=== PATIENT | female | born 1950 | race Caucasian/White ===

== ENCOUNTER → 2016-08-29 | Outpatient (CLI) | payer OTHER | LOC: FIMAGING 14:35 | PROVIDERS: ATTEND Family Medicine | DX: Z12.31 Encounter for screening mammogram for malignant neoplasm of breast (principal) | CPT/HCPCS: G0202 ==

== ENCOUNTER 2017-02-03 14:32 | Inpatient (IN) | payer OTHER ==
[2017-02-03] MEDS ORDERED: IPRATROPIUM/ALBUTEROL 3 ML DEYVIAL ONE (15:05)
[2017-02-03 15:15] LABS: % IMMATURE GRANULYOCYTES 0.5 % (0.0-1.1); ABSOLUTE IMMATURE GRANULOCYTES 0.06 10^3/uL (0.00-0.10); ADD DIFF? NO; ADD MORPH? NO; ADD SCAN? NO; ATYPICAL LYMPHOCYTE FLAG 0 (0-99); FRAGMENT RBC FLAG 0 (0-99); HEMATOCRIT 31.4 % (38.0-47.0); HEMOGLOBIN 10.1 g/dL (12.6-16.3); LEFT SHIFT FLG 90 (0-99); LIPEMIA HEMOLYSIS FLAG 80 (0-99); MEAN CELL HEMOGLOBIN 28.7 pg (27.9-34.1); MEAN CELL HEMOGLOBIN CONCENTR. 32.2 g/dL (32.4-36.7); MEAN CELL VOLUME 89.2 fL (81.5-99.8); MEAN PLATELET VOLUME 8.3 fL (8.7-11.7); PLATELET CLUMPS FLAG 30 (0-99); PLATELET COUNT 337 10^3/uL (150-400); RED BLOOD CELL COUNT 3.52 10^6/uL (4.18-5.33); RED CELL DISTRIBUTION WIDTH 15.1 % (11.5-15.2)
[2017-02-03] MEDS ORDERED: IPRATROPIUM/ALBUTEROL 3 ML DEYVIAL IH ONE (15:31)
[2017-02-03 15:33] LABS: ANION GAP 11 mEq/L (8-16); CALCIUM 8.8 mg/dL (8.5-10.4); CARBON DIOXIDE 20 mEq/l (22-31); CHLORIDE 100 mEq/L (97-110); CREATININE 0.8 mg/dL (0.6-1.0); GLOMERULAR FILTRATION RATE > 60; GLUCOSE 105 mg/dL (70-100); POTASSIUM 3.7 mEq/L (3.5-5.2); SODIUM 131 mEq/L (134-144)
--- NOTE | 2017-02-03 15:33 | EDPHY ---
H & P Stated Complaint: chills, sob since saturday, diarrhea, vomit Time Seen by Provider: 02/03/17 15:32 - Personal History Current Tetanus/Diphtheria Vaccine: Unsure Current Tetanus Diphtheria and Acellular Pertussis (TDAP): Unsure Tetanus Vaccine Date: 2010 - Medical/Surgical History Hx Asthma: No Hx Chronic Respiratory Disease: Yes Hx Diabetes: No Hx Cardiac Disease: Yes Hx Renal Disease: No Hx Cirrhosis: No Hx Alcoholism: Yes Hx HIV/AIDS: No Hx Splenectomy or Spleen Trauma: No Other PMH: HTN, COPD, blood clots, A Fib, Raynaud's - Social History Smoking Status: Never smoked Constitutional: Initial Vital Signs Temperature (C) 36.5 C 02/03/17 14:41 Heart Rate 91 02/03/17 14:41 Respiratory Rate 16 02/03/17 14:41 Blood Pressure 123/71 H 02/03/17 14:41 O2 Sat (%) 90 L 02/03/17 14:41 O2 Delivery Mode Room Air Allergies/Adverse Reactions: Penicillins Allergy (Severe, Verified 07/13/11 19:38) Anaphylaxis Sulfa (Sulfonamide Antibiotics) Allergy (Severe, Verified 07/13/11 19:38) Anaphylaxis codeine [Codeine] Allergy (Intermediate, Verified 07/13/11 19:38) Vomiting Shellfish *RETIRED-03/17/12 [Shellfish] Allergy (Intermediate, Verified 19:38) Hives DOG Allergy (Mild, Uncoded 07/13/11 19:38) Itching SEASONAL Allergy (Mild, Uncoded 07/13/11 19:38) Home Medications: Medication Instructions Recorded Albuterol [Proventil Inhaler HFA 1 - 2 puffs IH Q4 PRN 11/23/14 (*)] Alendronate Sodium [Fosamax 70 MG 70 mg PO TH@0700 11/23/14 (*)] Ascorbic Acid [Vitamin C 500 mg 1,000 mg PO DAILY 11/23/14 (*)] Calcium Carbonate [Oyster Shell 1,500 mg PO DAILY 11/23/14 Calcium 500 mg (*)] Cholecalciferol Vit D3 [Vitamin D3 1,000 units PO DAILY 11/23/14 (*)] Dabigatran Etexilate Mesyl 150 mg PO BID 05/19/15 [Pradaxa 150 MG (*)] Escitalopram Oxalate [Lexapro 10 10 mg PO DAILY@11 11/23/14 MG] Fluticasone/Salmeter 250/50Mcg 1 puffs IH DAILY 11/23/14 [Advair 250/50 (*)] Furosemide [Lasix 20 MG (*)] 20 mg PO DAILY 11/23/14 Oxybutynin Chloride 5 mg PO DAILY 11/23/14 Pantoprazole Sodium [Protonix 40mg 40 mg PO DAILY PRN 11/23/14 (*)] Potassium Cl [Klor-Con 10 meq (RX)] 10 meq PO DAILY 11/23/14 Tiotropium Inhaler [Spiriva 1 inh IH DAILY 11/23/14 Inhaler (RX)] Diltiazem HCl [Cardizem Cd] 240 mg PO DAILY #30 cap.er.24h 11/24/14 Lisinopril 10 mg PO DAILY #30 tablet 11/24/14 traMADol [Ultram 50 mg (*)] 50 mg PO Q4 PRN #60 tab 11/24/14 Medical Decision Making - Diagnostics Imaging Results: Imaging Impressions Chest X-Ray 02/03/17 15:08 Impression: Findings consistent with airways disease are noted. Increased lingular segment opacity could reflect superimposed pneumonia. ED Course/Re-evaluation: CHIEF COMPLAINT: Cough, fever, general malaise HISTORY OF PRESENT ILLNESS: The patient is an anticoagulated 67 y/o female arriving with her family complaining of general malaise, subjective fever, and coughing since Saturday, 5 days ago. She has a medical history that includes COPD, CAD, hyponatremia, GERD, and Raynaud's disease. She's had associated chills, rigors, vomiting, and diarrhea since onset. She does not use home O2. She denies recent ill contacts. No dysuria, chest pain, abdominal pain. REVIEW OF SYSTEMS: A 10 point review of systems was performed and is negative with the exception of the elements mentioned in the history of present illness. PHYSICAL EXAM: HR, BP, O2 Sat, RR. Temp noted General Appearance: Alert, well hydrated, appropriate, and non-toxic appearing. Head: Atraumatic without scalp tenderness or obvious injury Eyes: Pupils equal, round, reactive to light and accommodation, EOMI, no trauma , no injection. Ears: Clear bilaterally, no perforation, normal landmarks Nose: Atraumatic, no rhinorrhea, clear. Throat: There is no erythema or exudates, no lesions, normal tonsils, mucus membranes moist. Neck: Supple, nontender, no lymphadenopathy. Respiratory: No retractions, no distress, no wheezes, and no accessory muscle use. Decreased breath sounds at the bases with coarse rhonchi. Mildly dyspneic while speaking. Cardiovascular: Regular rate and rhythm, no murmurs, rubs, or gallops. Good capillary refill all extremities. Gastrointestinal: Abdomen is soft, nontender, non-distended, no masses, no rebound, no guarding, no peritoneal signs. Musculoskeletal: Normal active ROM of all extremities, atraumatic. Neurological: Alert, appropriate, and interactive. Nonfocal neuro exam. Skin: No rashes, good turgor, no nodules on palpation. Past medical history: COPD - Spiriva and Advair, Raynaud's disease, CAD, chronic hyponatremia, GERD, chronic extremity edema, blood clots - Pradaxa Past surgical history: finger amputation Family history: noncontributory Social history: Family at bedside. Former smoker. Lives alone in the area. Sees Dr. Tomás Carpenter at [facility] DIAGNOSTICS/PROCEDURES/CRITICAL CARE TIME: Chest x-ray: RLL infiltrate, chronic changes DIFFERENTIAL DIAGNOSIS: The differential diagnosis for the patient's shortness of breath and hypoxemia included but was not limited to pneumonia, myocardial infarction, acute mountain sickness, high altitude pulmonary edema, congestive heart failure, and pulmonary embolus. MEDICAL DECISION MAKING: This is a 67 y/o female with a history of COPD, PE, and CAD who presents with a 5-day history of cough, fever, and malaise. She's felt generally ill and now has associated vomiting and diarrhea. She is hypoxemic around 90% on room air upon arrival, but does not meet sepsis criteria at this time. Plan for IV, labs including cultures, chest x-ray. Chest x-ray show RLL infiltrate that is likely early pneumonia. 750mg IV Levaquin, 10mg IV Decadron, and 1L IV NS ordered. Given her hypoxemia, I have recommended admission, which patient agrees to. 1556: Spoke with hospitalist service. Dr. Pimentel accepts admission for pneumonia and requests Ceftriaxone and azithromycin instead of Levaquin. - Data Points Laboratory Results: Laboratory Results 02/03/17 15:00 02/03/17 15:00 02/03/17 02/03/17 02/03/17 15:41 15:41 15:00 WBC RBC Hgb Hct MCV MCH MCHC RDW Plt Count MPV Neut % (Auto) Lymph % (Auto) [place] % (Auto) Eos % (Auto) Baso % (Auto) Nucleat RBC Rel Count Absolute Neuts (auto) Absolute Lymphs (auto) Absolute Monos (auto) Absolute Eos (auto) Absolute Basos (auto) Absolute Nucleated RBC Immature Gran % Immature Gran # PT 16.4 SEC H SEC (12.0-15.0) INR 1.32 H (0.83-1.16) APTT 63.6 SEC H SEC (23.0-38.0) Sodium 131 mEq/L L mEq/L (134-144) Potassium 3.7 mEq/L mEq/L (3.5-5.2) Chloride 100 mEq/L mEq/L (97-110) Carbon Dioxide 20 mEq/l L mEq/l (22-31) Anion Gap 11 mEq/L mEq/L (8-16) BUN 8 mg/dL mg/dL (7-23) Creatinine 0.8 mg/dL mg/dL (0.6-1.0) Estimated GFR > 60 Glucose 105 mg/dL H mg/dL (70-100) Calcium 8.8 mg/dL mg/dL (8.5-10.4) Total Bilirubin 0.6 mg/dL mg/dL (0.1-1.4) 02/03/17 15:00 WBC 11.67 10^3/uL H 10^3/uL (3.80-9.50) RBC 3.52 10^6/uL L 10^6/uL (4.18-5.33) Hgb 10.1 g/dL L g/dL (12.6-16.3) Hct 31.4 % L % (38.0-47.0) MCV 89.2 fL fL (81.5-99.8) MCH 28.7 pg pg (27.9-34.1) MCHC 32.2 g/dL L g/dL (32.4-36.7) RDW 15.1 % % (11.5-15.2) Plt Count 337 10^3/uL 10^3/uL (150-400) MPV 8.3 fL L fL (8.7-11.7) Neut % (Auto) 86.3 % H % (39.3-74.2) Lymph % (Auto) 5.1 % L % (15.0-45.0) [place] % (Auto) 7.8 % % (4.5-13.0) Eos % (Auto) 0.0 % L % (0.6-7.6) Baso % (Auto) 0.3 % % (0.3-1.7) Nucleat RBC Rel Count 0.0 % % (0.0-0.2) Absolute Neuts (auto) 10.06 10^3/uL H 10^3/uL (1.70-6.50) Absolute Lymphs (auto) 0.60 10^3/uL L 10^3/uL (1.00-3.00) Absolute Monos (auto) 0.91 10^3/uL H 10^3/uL (0.30-0.80) Absolute Eos (auto) 0.00 10^3/uL L 10^3/uL (0.03-0.40) Absolute Basos (auto) 0.04 10^3/uL 10^3/uL (0.02-0.10) Absolute Nucleated RBC 0.00 10^3/uL 10^3/uL (0-0.01) Immature Gran % 0.5 % % (0.0-1.1) Immature Gran # 0.06 10^3/uL 10^3/uL (0.00-0.10) PT INR APTT Sodium Potassium Chloride Carbon Dioxide Anion Gap BUN Creatinine Estimated GFR Glucose Calcium Total Bilirubin Medications Given: Discontinued Medications Albuterol/Ipratropium (Duoneb) 3 ml IH EDNOW ONE Stop: 02/03/17 15:32 Last Admin: 02/03/17 15:46 Dose: 3 ml Departure - Departure Disposition: [facility] Inpatient Acute Clinical Impression: Chronic obstructive pulmonary disease with acute exacerbation, Hypoxemia Pneumonia Qualifiers: Pneumonia type: due to unspecified organism Laterality: right Lung location: lower lobe of lung Qualified Code(s): J18.1 - Lobar pneumonia, unspecified organism Condition: Fair Referrals: Ivelisse Izaguirre MD [Primary Care Provider] - As per Instructions Report Scribed for: Chris Bhat Report Scribed by: Ml Mejia Date of Report: 02/03/17 Time of Report: 15:43
[2017-02-03 15:54] LABS: INR 1.32 (0.83-1.16); PROTIME(PATIENT) 16.4 SEC (12.0-15.0)
[2017-02-03] MEDS ORDERED: DEXAMETHASONE 10 MG/ML VIAL IVP ONE (15:54)
[2017-02-03 15:56] LABS: APTT 63.6 SEC (23.0-38.0)
[2017-02-03] MEDS ORDERED: AZITHROMYCIN IV 500 MG in D5W 250 ML IV ONE (15:58)
[2017-02-03 15:59] LABS: BILIRUBIN,TOTAL 0.6 mg/dL (0.1-1.4)
[2017-02-03] MEDS ORDERED: ONDANSETRON 4 MG/2 ML VIAL IVP PRN (18:20)
[2017-02-03] MEDS ORDERED: ONDANSETRON DISINTEGRATING 4 MG TAB PO PRN (18:20)
[2017-02-03] MEDS ORDERED: ALBUTEROL 3 ML DEYVIAL IH PRN (18:21)
[2017-02-03] MEDS: ACETAMINOPHEN 325 MG TAB PO PRN ×2 (18:40→22:47)
--- NOTE | 2017-02-03 19:12 | GHP ---
[f rep st] HISTORY AND PHYSICAL DATE OF ADMISSION: 02/03/2017 CHIEF COMPLAINT: Shortness of breath, cough. HISTORY OF PRESENT ILLNESS: This is a 67-year-old female, with a history of COPD and Raynaud's, as well as atrial fibrillation, on anticoagulation. She presents with several days of cough, shortness of breath. She also has had some chills and rigors. She admitted to diarrhea and some nausea with a little bit of vomiting this morning. She denied any chest pain. Her cough is not very productiv e. REVIEW OF SYSTEMS: A 10-point review of systems was obtained and other than stated above was negati ve. PAST MEDICAL HISTORY: 1. COPD. 2. History of Raynaud's with partial finger amputations. 3. Atrial fibrillation, on chronic anticoagulation. 4. Chronic hyponatremia. MEDICATIONS: Reviewed. SOCIAL HISTORY: Quit smoking. Has family in the area. FAMILY HISTORY: Cancer in the family, but no Raynaud's or autoimmune diseases. PHYSICAL EXAMINATION: VITAL SIGNS: Afebrile, blood pressure is 111/61, heart rate 87, oxygen satur ation 92% on 2 L. GENERAL: Patient is well developed, in no apparent distress. HEENT: Nonicteric sclerae. Extraocular movements intact. Moist mucous membranes. NECK: Supple. No thyromegaly. L UNGS: Good effort. Some rhonchi in the right base. Decreased breath sounds, but no wheezing. CAR DIOVASCULAR: Regular rate and rhythm. No murmurs, gallops. ABDOMEN: Positive bowel sounds. Soft , nontender, nondistended. No rebound or guarding. EXTREMITIES: No clubbing, cyanosis, or edema. SKIN: Without rash. Warm, dry, intact. NEUROLOGIC: Moving all 4 extremities equally. PSYCH: No rmal mood and affect. LABORATORY DATA: White blood cell count is 11, hemoglobin 10. Sodium 131, potassium 3.7. Chest x- ray, personally reviewed and interpreted, shows perihilar opacities in the left upper lobe. ASSESSMENT: A 67-year-old female, presenting with probable community-acquired pneumonia, and chroni c obstructive pulmonary disease exacerbation. 1. Community-acquired pneumonia. We will continue ceftriaxone and azithromycin. She is allergic t o penicillin, but tolerated ceftriaxone given in the emergency department so far. 2. Chronic obstructive pulmonary disease. We will start her on steroids. She is having pre-tight lungs. We will give nebulizer treatments as well. 3. Hyponatremia. This is chronic. We will continue with fluid restriction. 4. History of Raynaud's. This appears to be quiescent. 5. Atrial fibrillation, will continue on Pradaxa and other medications. PLAN: Admission. Patient will be admitted under observation status. Case discussed with ER michi witt. Old records were reviewed and summarized in the HPI. /[id number]/MODL
[2017-02-03] MEDS: predniSONE 20 MG TAB PO SCH (19:13)
[2017-02-03] MEDS: NS 1,000 ML IV SCH (19:13)
[2017-02-03] MEDS: IPRATROPIUM/ALBUTEROL 3 ML DEYVIAL IH SCH (20:13)
[2017-02-03] MEDS ORDERED: ACETAMINOPHEN 325 MG TAB PO PRN (21:51)
[2017-02-03] MEDS: DABIGATRAN ETEXILATE MESYL 150 MG CAP PO SCH (22:28)
[2017-02-03] MEDS: traMADol 50 MG TAB PO PRN (22:46)
[2017-02-04] MEDS: IPRATROPIUM/ALBUTEROL 3 ML DEYVIAL IH SCH ×4 (04:59→21:30)
[2017-02-04 05:29] LABS: % IMMATURE GRANULYOCYTES 0.4 % (0.0-1.1); ABSOLUTE IMMATURE GRANULOCYTES 0.04 10^3/uL (0.00-0.10); ADD DIFF? NO; ADD MORPH? NO; ADD SCAN? YES; ATYPICAL LYMPHOCYTE FLAG 20 (0-99); FRAGMENT RBC FLAG 0 (0-99); HEMATOCRIT 30.3 % (38.0-47.0); HEMOGLOBIN 9.7 g/dL (12.6-16.3); LIPEMIA HEMOLYSIS FLAG 80 (0-99); MEAN CELL HEMOGLOBIN 28.8 pg (27.9-34.1); MEAN CELL VOLUME 89.9 fL (81.5-99.8); MEAN PLATELET VOLUME 8.6 fL (8.7-11.7); PLATELET CLUMPS FLAG 0 (0-99); PLATELET COUNT 346 10^3/uL (150-400); RED BLOOD CELL COUNT 3.37 10^6/uL (4.18-5.33); RED CELL DISTRIBUTION WIDTH 15.1 % (11.5-15.2)
[2017-02-04 05:31] LABS: LEFT SHIFT FLG 100 (0-99)
[2017-02-04 05:45] LABS: ALANINE AMINOTRANSFERASE 32 IU/L (9-52); ALBUMIN 3.5 g/dL (3.5-5.0); ALKALINE PHOSPHATASE 73 IU/L (38-126); ANION GAP 14 mEq/L (8-16); ASPARTATE AMINOTRANSFERASE 19 IU/L (14-46); BILIRUBIN,TOTAL 0.4 mg/dL (0.1-1.4); CALCIUM 8.6 mg/dL (8.5-10.4); CARBON DIOXIDE 20 mEq/l (22-31); CHLORIDE 105 mEq/L (97-110); CREATININE 0.6 mg/dL (0.6-1.0); GLOMERULAR FILTRATION RATE > 60; GLUCOSE 125 mg/dL (70-100); POTASSIUM 4.3 mEq/L (3.5-5.2); SODIUM 139 mEq/L (134-144); TOTAL PROTEIN 6.4 g/dL (6.3-8.2)
[2017-02-04 06:07] LABS: SCAN NEGATIVE
[2017-02-04] MEDS: ACETAMINOPHEN 325 MG TAB PO PRN ×3 (09:36→23:58)
[2017-02-04] MEDS: FLUTICASONE/SALMETER 500/50MCG DISKUS IH SCH ×2 (10:42→21:40)
[2017-02-04] MEDS: TIOTROPIUM INHALER 18 MCG/DOSE 5 DOSE/MDI IH SCH (10:43)
[2017-02-04] MEDS: predniSONE 20 MG TAB PO SCH (10:51)
[2017-02-04] MEDS: PANTOPRAZOLE SODIUM 40 MG TAB PO SCH ×2 (10:51→20:19)
[2017-02-04] MEDS: ESCITALOPRAM OXALATE 10 MG TAB PO SCH (10:51)
[2017-02-04] MEDS: DILTIAZEM XR 240 MG CAP PO SCH (10:51)
[2017-02-04] MEDS: FUROSEMIDE 20 MG TAB PO SCH (10:51)
[2017-02-04] MEDS: OXYBUTYNIN CHLORIDE 5 MG TAB PO SCH ×2 (10:52→19:38)
[2017-02-04] MEDS: ROSUVASTATIN CALCIUM 10 MG TAB PO SCH (10:52)
[2017-02-04] MEDS: AZITHROMYCIN 250 MG TAB PO SCH (10:52)
[2017-02-04] MEDS: DABIGATRAN ETEXILATE MESYL 150 MG CAP PO SCH ×2 (10:52→20:19)
[2017-02-04] MEDS: POTASSIUM CL 10 MEQ TAB PO SCH ×2 (11:03→17:24)
--- NOTE | 2017-02-04 17:11 | HOSPPROG ---
Hospitalist Progress Note Assessment/Plan: 67-year-old female with known COPD, atrial fibrillation on chronic anticoagulation who was admitted with pneumonia. Patient is new to me today. -acute sepsis with tachypnea, fever, leukocytosis, and hypoxemia worse than at her baseline, and a left shift secondary to an acute pneumonia. Patient is currently on antibiotics bronchodilators steroids and supplemental oxygen. -acute pneumonia on antibiotics and bronchodilators and steroids with acute respiratory failure on chronic respiratory failure. -atrial fibrillation, currently in good control and on chronic anticoagulation of Pradaxa. This has been continued. -COPD, chronic respiratory failure and on O2 at 2 liters/minute chronically. She is currently receiving 4 liters/minute and feeling improved. -hyponatremia of 131 on admission which is corrected to 139 now. Plan: To continue her pulmonary care antibiotic steroids oxygen and her anticoagulation for atrial fibrillation. Disposition: Probable 2 more days of hospitalization for stability. Time: 40 minutes Subjective: Reports she is feeling slightly improved with less shortness of breath but continues to feel quite tired and weak. She has a cough that is nonproductive no complaint of chest pain Objective: Vital Signs Temp Pulse Resp BP Pulse Ox 36.8 C 84 24 H 105/63 94 02/04/17 16:00 02/04/17 16:15 02/04/17 16:15 02/04/17 16:00 02/04/17 16:15 Laboratory Results 02/04/17 04:50 02/04/17 04:50 02/03/17 02/04/17 02/05/17 05:59 05:59 05:59 Intake Total 700 Balance 700 PT 16.4 SEC (12.0-15.0) H 02/03/17 15:41 INR 1.32 (0.83-1.16) H 02/03/17 15:41 - Time Spent With Patient Time Spent with Patient: greater than 35 minutes Time Spent with Patient: Greater than 35 minutes spent on this patients care, greater than 50% of time spent counseling, educating, and coordinating care regarding the above mentioned plan. - Pending Discharge Pending Discharge Within 24 Hours: No Pending Discharge Within 48 Hours: No - Physical Exam Constitutional: chronically ill appearing, other (Slightly short of breath at rest) Eyes: PERRL Ears, Nose, Mouth, Throat: moist mucous membranes Cardiovascular: regular rate and rhythym, no murmur, rub, or gallop Respiratory: reduced air movement, inspiratory crackles, rhonchi Genitourinary: no bladder fullness Skin: warm Musculoskeletal: generalized weakness Neurologic: AAOx3, CN II-XII Intact Psychiatric: interacting appropriately ICD10 Worksheet Patient Problems: Problems Problem Status Onset Pneumonia Acute Chronic obstructive pulmonary disease with acute exacerbation Acute Hypoxemia Acute
[2017-02-04] MEDS: NS 1,000 ML IV SCH (17:16)
[2017-02-04] MEDS ORDERED: CEPACOL LOZENGE PO PRN (19:50)
[2017-02-04] MEDS: PHENOL 177 ML THROAT SPRAY PO PRN (20:55)
[2017-02-04] MEDS: traMADol 50 MG TAB PO PRN (23:58)
[2017-02-05] MEDS: ACETAMINOPHEN 325 MG TAB PO PRN ×2 (04:36→09:04)
[2017-02-05 04:51] LABS: % IMMATURE GRANULYOCYTES 1.2 % (0.0-1.1); ABSOLUTE IMMATURE GRANULOCYTES 0.13 10^3/uL (0.00-0.10); ADD DIFF? NO; ADD MORPH? NO; ADD SCAN? NO; ATYPICAL LYMPHOCYTE FLAG 60 (0-99); FRAGMENT RBC FLAG 0 (0-99); HEMATOCRIT 29.2 % (38.0-47.0); HEMOGLOBIN 9.4 g/dL (12.6-16.3); LEFT SHIFT FLG 10 (0-99); LIPEMIA HEMOLYSIS FLAG 80 (0-99); MEAN CELL HEMOGLOBIN 28.7 pg (27.9-34.1); MEAN CELL HEMOGLOBIN CONCENTR. 32.2 g/dL (32.4-36.7); MEAN CELL VOLUME 89.3 fL (81.5-99.8); MEAN PLATELET VOLUME 8.2 fL (8.7-11.7); PLATELET CLUMPS FLAG 0 (0-99); PLATELET COUNT 352 10^3/uL (150-400); RED BLOOD CELL COUNT 3.27 10^6/uL (4.18-5.33); RED CELL DISTRIBUTION WIDTH 15.3 % (11.5-15.2)
[2017-02-05 05:18] LABS: ALANINE AMINOTRANSFERASE 27 IU/L (9-52); ALBUMIN 3.2 g/dL (3.5-5.0); ALKALINE PHOSPHATASE 65 IU/L (38-126); ANION GAP 10 mEq/L (8-16); ASPARTATE AMINOTRANSFERASE 20 IU/L (14-46); BILIRUBIN,TOTAL 0.3 mg/dL (0.1-1.4); CALCIUM 8.7 mg/dL (8.5-10.4); CARBON DIOXIDE 21 mEq/l (22-31); CHLORIDE 107 mEq/L (97-110); CREATININE 0.7 mg/dL (0.6-1.0); GLOMERULAR FILTRATION RATE > 60; GLUCOSE 119 mg/dL (70-100); POTASSIUM 4.5 mEq/L (3.5-5.2); SODIUM 138 mEq/L (134-144)
[2017-02-05] MEDS: IPRATROPIUM/ALBUTEROL 3 ML DEYVIAL IH SCH ×4 (05:45→21:08)
--- NOTE | 2017-02-05 09:09 | HOSPPROG ---
Hospitalist Progress Note Assessment/Plan: Patient is a 67-year-old female with history COPD and Raynaud's, atrial fibrillation on oral anticoagulation. She presented with several days of coughing and shortness of breath. Chest x-ray reviewed shows perihilar opacities in left upper lobe. Today is my 1st encounter with the patient. Chart reviewed. * community-acquired pneumonia with associated sepsis On azithromycin and ceftriaxone She is on 3 L of oxygen Will add guaifenesin * COPD Steroids and bronchodilators At baseline she is on 2 L * atrial fibrillation Rate controlled and on Pradaxa * anemia Will follow * chronic hyponatremia Followed by Nephrology in the outpatient setting Patient states she is usually on a fluid restriction * history of Raynaud's with partial finger amputations * plan. Patient will need another few nights for treatment of her pneumonia. Will continue antibiotics as well as prednisone Subjective: Darlin is feeling tired. Did not sleep well. Still continues to be very short of breath Objective: Vital Signs Temp Pulse Resp BP Pulse Ox 36.7 C 81 20 133/84 H 92 02/05/17 08:00 02/05/17 08:00 02/05/17 08:00 02/05/17 08:00 02/05/17 08:00 Laboratory Results 02/05/17 04:35 02/05/17 04:35 02/04/17 02/05/17 02/06/17 05:59 05:59 05:59 Intake Total 800 Balance 800 PT 16.4 SEC (12.0-15.0) H 02/03/17 15:41 INR 1.32 (0.83-1.16) H 02/03/17 15:41 - Physical Exam Constitutional: not in pain Eyes: PERRL Ears, Nose, Mouth, Throat: hearing normal Cardiovascular: regular rate and rhythym Respiratory: reduced air movement (Bibasilar), No no respiratory distress ( Increased work of breathing with talking and moving) Gastrointestinal: normoactive bowel sounds Skin: warm Musculoskeletal: full muscle strength Neurologic: AAOx3 Psychiatric: interacting appropriately, not anxious ICD10 Worksheet Patient Problems: Problems Problem Status Onset Chronic obstructive pulmonary disease with acute exacerbation Acute Hypoxemia Acute Pneumonia Acute
[2017-02-05] MEDS ORDERED: MAGNESIUM HYDROXIDE 30 ML UDCUP PO PRN (09:49)
[2017-02-05] MEDS ORDERED: LACTULOSE 20 GM/30 ML UDCUP PO PRN (09:49)
[2017-02-05] MEDS ORDERED: BISACODYL 10 MG SUPP PR PRN (09:49)
[2017-02-05] MEDS ORDERED: GUAIFENESIN/DM 10 ML UDCUP PO PRN (09:50)
[2017-02-05] MEDS: POTASSIUM CL 10 MEQ TAB PO SCH ×2 (10:00→18:03)
[2017-02-05] MEDS: FLUTICASONE/SALMETER 500/50MCG DISKUS IH SCH ×2 (10:03→21:09)
[2017-02-05] MEDS: TIOTROPIUM INHALER 18 MCG/DOSE 5 DOSE/MDI IH SCH (10:04)
[2017-02-05] MEDS: DABIGATRAN ETEXILATE MESYL 150 MG CAP PO SCH ×2 (10:14→20:14)
[2017-02-05] MEDS: ESCITALOPRAM OXALATE 10 MG TAB PO SCH (10:15)
[2017-02-05] MEDS: ROSUVASTATIN CALCIUM 10 MG TAB PO SCH (10:15)
[2017-02-05] MEDS: DILTIAZEM XR 240 MG CAP PO SCH (10:16)
[2017-02-05] MEDS: FUROSEMIDE 20 MG TAB PO SCH (10:16)
[2017-02-05] MEDS: OXYBUTYNIN CHLORIDE 5 MG TAB PO SCH ×2 (10:16→20:19)
[2017-02-05] MEDS: PANTOPRAZOLE SODIUM 40 MG TAB PO SCH ×2 (10:16→20:11)
[2017-02-05] MEDS: AZITHROMYCIN 250 MG TAB PO SCH (10:16)
[2017-02-05] MEDS: predniSONE 20 MG TAB PO SCH (10:16)
[2017-02-05] MEDS: POLYETHYLENE GLYCOL 3350 17 GM PKT PO SCH (10:30)
[2017-02-05] MEDS: guaiFENesin 600 MG TAB.ER PO SCH ×2 (10:30→20:12)
[2017-02-05] MEDS: PHENOL 177 ML THROAT SPRAY PO PRN (17:27)
[2017-02-05] MEDS: SENNOSIDES/DOCUSATE SODIUM TAB PO SCH (20:11)
[2017-02-05] MEDS: traMADol 50 MG TAB PO PRN (23:06)
[2017-02-06] MEDS: IPRATROPIUM/ALBUTEROL 3 ML DEYVIAL IH SCH ×4 (04:36→21:02)
[2017-02-06 05:11] LABS: % IMMATURE GRANULYOCYTES 1.9 % (0.0-1.1); ABSOLUTE IMMATURE GRANULOCYTES 0.22 10^3/uL (0.00-0.10); ABSOLUTE NRBC COUNT 0.02 10^3/uL (0-0.01); ADD DIFF? NO; ADD MORPH? NO; ADD SCAN? YES; FRAGMENT RBC FLAG 0 (0-99); HEMATOCRIT 27.8 % (38.0-47.0); HEMOGLOBIN 9.2 g/dL (12.6-16.3); LEFT SHIFT FLG 10 (0-99); LIPEMIA HEMOLYSIS FLAG 80 (0-99); MEAN CELL HEMOGLOBIN 29.1 pg (27.9-34.1); MEAN CELL HEMOGLOBIN CONCENTR. 33.1 g/dL (32.4-36.7); MEAN PLATELET VOLUME 8.3 fL (8.7-11.7); NRBC-AUTO% 0.2 % (0.0-0.2); PLATELET CLUMPS FLAG 0 (0-99); PLATELET COUNT 378 10^3/uL (150-400); RED BLOOD CELL COUNT 3.16 10^6/uL (4.18-5.33)
[2017-02-06 05:13] LABS: ATYPICAL LYMPHOCYTE FLAG 120 (0-99)
[2017-02-06 05:58] LABS: SCAN NEGATIVE
--- NOTE | 2017-02-06 08:49 | HOSPPROG ---
Hospitalist Progress Note Assessment/Plan: Patient is a 67-year-old female with history COPD and Raynaud's, atrial fibrillation on oral anticoagulation. She presented with several days of coughing and shortness of breath. Chest x-ray reviewed shows perihilar opacities in left upper lobe. * community-acquired pneumonia with associated sepsis On azithromycin and ceftriaxone She is on 2 L of oxygen Will add guaifenesin * COPD Steroids and bronchodilators At baseline she is on 2 L doesn't want to use Advair here in hospital due to the cost * atrial fibrillation Rate controlled and on Pradaxa * anemia Will follow * chronic hyponatremia Followed by Nephrology in the outpatient setting Patient states she is usually on a fluid restriction * history of Raynaud's with partial finger amputations * plan. she will need another midnight stay/slow improvement/ she doesn't want prednisone dose increased/ she gets thrush with this. She is going to make an appt with [facility] for next week if possible. Subjective: Darlin had a good evening last night, but not feeling so well this morning/ short of breath with talking. Objective: Vital Signs Temp Pulse Resp BP Pulse Ox 36.4 C 84 16 126/78 H 90 L 02/06/17 04:45 02/06/17 04:45 02/06/17 04:45 02/06/17 04:45 02/06/17 04:45 Laboratory Results 02/06/17 04:30 02/05/17 04:35 02/05/17 02/06/17 02/07/17 05:59 05:59 05:59 Intake Total 800 1750 Balance 800 1750 PT 16.4 SEC (12.0-15.0) H 02/03/17 15:41 INR 1.32 (0.83-1.16) H 02/03/17 15:41 - Physical Exam Constitutional: no apparent distress, appears nourished, not in pain Eyes: anicteric sclera Ears, Nose, Mouth, Throat: hearing normal Cardiovascular: regular rate and rhythym Respiratory: reduced air movement (tight, very poor air movement at the bases), No no respiratory distress (increase wob with talking) Gastrointestinal: normoactive bowel sounds Skin: warm, normal color Musculoskeletal: full muscle strength Neurologic: AAOx3 Psychiatric: interacting appropriately ICD10 Worksheet Patient Problems: Problems Problem Status Onset Chronic obstructive pulmonary disease with acute exacerbation Acute Hypoxemia Acute Pneumonia Acute
[2017-02-06] MEDS: guaiFENesin 600 MG TAB.ER PO SCH ×2 (09:40→20:15)
[2017-02-06] MEDS: POTASSIUM CL 10 MEQ TAB PO SCH ×2 (09:40→18:47)
[2017-02-06] MEDS: FUROSEMIDE 20 MG TAB PO SCH (09:40)
[2017-02-06] MEDS: DABIGATRAN ETEXILATE MESYL 150 MG CAP PO SCH ×2 (09:40→20:16)
[2017-02-06] MEDS: PANTOPRAZOLE SODIUM 40 MG TAB PO SCH ×2 (09:40→20:16)
[2017-02-06] MEDS: AZITHROMYCIN 250 MG TAB PO SCH (09:40)
[2017-02-06] MEDS: OXYBUTYNIN CHLORIDE 5 MG TAB PO SCH ×3 (09:40→20:18)
[2017-02-06] MEDS: DILTIAZEM XR 240 MG CAP PO SCH (09:40)
[2017-02-06] MEDS: SENNOSIDES/DOCUSATE SODIUM TAB PO SCH ×2 (09:40→20:16)
[2017-02-06] MEDS: FLUTICASONE/SALMETER 500/50MCG DISKUS IH SCH ×2 (10:21→21:02)
[2017-02-06] MEDS: TIOTROPIUM INHALER 18 MCG/DOSE 5 DOSE/MDI IH SCH (10:21)
[2017-02-06] MEDS: POLYETHYLENE GLYCOL 3350 17 GM PKT PO SCH (10:21)
[2017-02-06] MEDS: ACETAMINOPHEN 325 MG TAB PO PRN (10:24)
[2017-02-06] MEDS: predniSONE 20 MG TAB PO SCH (10:26)
[2017-02-06] MEDS: ROSUVASTATIN CALCIUM 10 MG TAB PO SCH (10:29)
[2017-02-06] MEDS: ESCITALOPRAM OXALATE 10 MG TAB PO SCH (12:29)
[2017-02-06] MEDS: traMADol 50 MG TAB PO PRN (22:33)
[2017-02-07 05:31] LABS: ADD DIFF? YES; ADD MORPH? NO; FRAGMENT RBC FLAG 0 (0-99); HEMATOCRIT 30.4 % (38.0-47.0); HEMOGLOBIN 9.9 g/dL (12.6-16.3); LEFT SHIFT FLG 20 (0-99); LIPEMIA HEMOLYSIS FLAG 80 (0-99); MEAN CELL HEMOGLOBIN 28.5 pg (27.9-34.1); MEAN CELL HEMOGLOBIN CONCENTR. 32.6 g/dL (32.4-36.7); MEAN CELL VOLUME 87.6 fL (81.5-99.8); MEAN PLATELET VOLUME 8.4 fL (8.7-11.7); PLATELET CLUMPS FLAG 10 (0-99); PLATELET COUNT 462 10^3/uL (150-400); RED BLOOD CELL COUNT 3.47 10^6/uL (4.18-5.33); RED CELL DISTRIBUTION WIDTH 14.9 % (11.5-15.2)
[2017-02-07] MEDS: IPRATROPIUM/ALBUTEROL 3 ML DEYVIAL IH SCH ×4 (05:41→22:20)
[2017-02-07 05:46] LABS: ADD SCAN? NO; ATYPICAL LYMPHOCYTE FLAG 170 (0-99)
[2017-02-07 06:18] LABS: ACANTHOCYTES 1+; ELLIPTOCYTES 1+
[2017-02-07 06:19] LABS: HYPERSEGMENTED NEUTROPHILS 1+
[2017-02-07 06:20] LABS: PLATELET ESTIMATE INCREASED (ADEQ)
[2017-02-07] MEDS: DILTIAZEM XR 240 MG CAP PO SCH (08:04)
[2017-02-07] MEDS: DABIGATRAN ETEXILATE MESYL 150 MG CAP PO SCH ×2 (08:04→20:23)
[2017-02-07] MEDS: PANTOPRAZOLE SODIUM 40 MG TAB PO SCH ×2 (10:06→20:24)
[2017-02-07] MEDS: POTASSIUM CL 10 MEQ TAB PO SCH ×2 (10:08→17:52)
[2017-02-07] MEDS: AZITHROMYCIN 250 MG TAB PO SCH ×2 (10:09→10:34)
[2017-02-07] MEDS: FUROSEMIDE 20 MG TAB PO SCH (10:10)
[2017-02-07] MEDS: guaiFENesin 600 MG TAB.ER PO SCH ×2 (10:11→20:24)
[2017-02-07] MEDS: OXYBUTYNIN CHLORIDE 5 MG TAB PO SCH ×2 (10:12→20:33)
[2017-02-07] MEDS: predniSONE 20 MG TAB PO SCH (10:13)
[2017-02-07] MEDS: POLYETHYLENE GLYCOL 3350 17 GM PKT PO SCH (10:13)
[2017-02-07] MEDS: ROSUVASTATIN CALCIUM 10 MG TAB PO SCH (10:15)
[2017-02-07] MEDS: SENNOSIDES/DOCUSATE SODIUM TAB PO SCH ×2 (10:17→20:24)
[2017-02-07] MEDS: ESCITALOPRAM OXALATE 10 MG TAB PO SCH (10:19)
[2017-02-07] MEDS: FLUTICASONE/SALMETER 500/50MCG DISKUS IH SCH ×2 (10:22→22:26)
[2017-02-07] MEDS: TIOTROPIUM INHALER 18 MCG/DOSE 5 DOSE/MDI IH SCH (10:23)
--- NOTE | 2017-02-07 11:49 | HOSPPROG ---
Hospitalist Progress Note Assessment/Plan: Patient is a 67-year-old female with history COPD and Raynaud's, atrial fibrillation on oral anticoagulation. She presented with several days of coughing and shortness of breath. Chest x-ray reviewed shows perihilar opacities in left upper lobe. * community-acquired pneumonia with associated sepsis On azithromycin and ceftriaxone She is on 2 L of oxygen guaifenesin * COPD Steroids and bronchodilators At baseline she is on 2 L * atrial fibrillation Rate controlled and on Pradaxa had some rapid afib during the night that resolved * anemia Will follow * chronic hyponatremia Followed by Nephrology in the outpatient setting Patient states she is usually on a fluid restriction * history of Raynaud's with partial finger amputations * plan. get an echo/ has crackles in her lungs now and rapid afib and during the night / while also check a BNP in the morning Subjective: Darlin is starting to feel some improvement in her breathing today. Objective: Vital Signs Temp Pulse Resp BP Pulse Ox 36.9 C 99 22 H 141/108 H 83 L 02/07/17 08:00 02/07/17 10:20 02/07/17 10:20 02/07/17 08:04 02/07/17 10:20 Laboratory Results 02/07/17 04:27 02/05/17 04:35 02/06/17 02/07/17 02/08/17 05:59 05:59 05:59 Intake Total 1750 400 Balance 1750 400 PT 16.4 SEC (12.0-15.0) H 02/03/17 15:41 INR 1.32 (0.83-1.16) H 02/03/17 15:41 - Physical Exam Constitutional: appears nourished, not in pain Eyes: PERRL Ears, Nose, Mouth, Throat: hearing normal Cardiovascular: irregularly irregular Respiratory: other (crackles in both lower lobes/poor expiratory effort) Gastrointestinal: normoactive bowel sounds Skin: warm Musculoskeletal: full muscle strength Neurologic: AAOx3 Psychiatric: interacting appropriately, not anxious ICD10 Worksheet Patient Problems: Problems Problem Status Onset Chronic obstructive pulmonary disease with acute exacerbation Acute Hypoxemia Acute Pneumonia Acute
--- NOTE | 2017-02-07 16:58 | ECHO ---
[id number] + + [id number] : : [place] [address] : : [phone] + + Adult Echocardiographic Report + + :Name: SKYLA LEWIS CStudy Date: 02/07/2017 10:54 AM : : Hospital Admission Number: [id number] Location: 381: :: 1950 Gender: Female Height : 61 in : :Age: 67 yrs Race: WH Weight : 165 lb : :Reason For Study: SOB/A fib : : BSA: 1 .7 meters2 : + + MMode/2D Measurements \T\ Calculations IVSd: 0.79 cm LVIDd: 4.5 cm FS: 45.7 % Ao root diam: LVPWd: 0.74 cm LVIDs: 2.4 cm EDV(Teich): 3.4 cm 92.1 ml LA dimension: ESV(Teich): 4.2 cm 21.0 ml EF(Teich): 77.2 % LVLd ap4: 7.1 cm SV(MOD-sp4): EDV(MOD-sp4): 45.0 ml 65.0 ml LVLs ap4: 5.9 cm ESV(MOD-sp4): 20.0 ml EF(MOD-sp4): 69.2 % Normal Measurement Values: + + :LVIDd (3.5-5.7cm) IVSd (0.6-1.1cm) LVPWd (0.6-1.1cm) Aortic Root (2.0-3.7cm)Left Atrium (1.5-4.0cm): :LV Vol(d) (76-115ml) LV Vol(s) (29-48ml) Ejec Fraction (50-65%)PV Joe (0.6- 1.2m/s) TV Joe (0.4-1.0m/s) : :MV E Joe (0.8-1.0m/s)MV A Joe (0.3-1.0m/s)LVOT Joe (0.7-1.2m/s) Asc Ao Joe ( 0.9-1.8m/s) : + + Doppler Measurements \T\ Calculations MV E max joe: 122.9 cm/sec Ao mean P.1 mmHg MV A max joe: 34.6 cm/sec Ao V2 mean: 82.0 cm/sec MV E/A: 3.6 Ao V2 VTI: 21.6 cm Left Ventricle The left ventricle is normal in size. There is normal left ventricular wall thickness. Left ventricular systolic function is normal. Ejection Fraction = 65-70%. No regional wall motion abnormalities noted. Right Ventricle The right ventricle is normal in size and function. Atria The left atrium is moderately dilated. Right atrial size is normal. The interatrial septum is intact with no evidence for an atrial septal defect. Mitral Valve The mitral valve is normal in structure and function. There is no evidence of mitral valve prolapse. There is no mitral valve stenosis. There is mild mitral regurgitation. Tricuspid Valve Normal tricuspid valve. There is mild tricuspid regurgitation. Right ventricular systolic pressure is normal. Aortic Valve The aortic valve is trileaflet. The aortic valve opens well. There is no aortic stenosis. There is no aortic insufficiency. Pulmonic Valve The pulmonic valve is normal in structure and function. Trace pulmonic valvular regurgitation. Great Vessels The aortic root is normal size. Mildly dilated ascending aorta. Pericardium/Pleural There is no pericardial effusion. Conclusion A complete two-dimensional transthoracic echocardiogram was performed (2D, M-mode, Doppler and color flow Doppler). Left ventricular systolic function is normal. Ejection Fraction = 65-70%. The left atrium is moderately dilated. There is mild mitral regurgitation. There is mild tricuspid regurgitation. Right ventricular systolic pressure is normal. Trace pulmonic valvular regurgitation. Mildly dilated ascending aorta. Final Reading Physician: Sukumar Ayoub electronically signed on 02/07/2017 04:56 PM Ordering Physician: Charity Johnson Performed By: Ivelisse Murray, TADCS
[2017-02-07] MEDS: NYSTATIN SUSP 500000 UNIT/5 ML UDCUP PO SCH ×2 (17:23→22:56)
[2017-02-07] MEDS: traMADol 50 MG TAB PO PRN (22:55)
[2017-02-08] MEDS: ACETAMINOPHEN 325 MG TAB PO PRN (02:02)
[2017-02-08] MEDS: traMADol 50 MG TAB PO PRN ×2 (02:06→22:46)
[2017-02-08] MEDS: NYSTATIN SUSP 500000 UNIT/5 ML UDCUP PO SCH ×4 (06:15→20:10)
[2017-02-08] MEDS: AZITHROMYCIN 250 MG TAB PO SCH (08:34)
[2017-02-08] MEDS: DILTIAZEM XR 240 MG CAP PO SCH (08:35)
[2017-02-08] MEDS: DABIGATRAN ETEXILATE MESYL 150 MG CAP PO SCH ×2 (08:35→20:08)
[2017-02-08] MEDS: OXYBUTYNIN CHLORIDE 5 MG TAB PO SCH ×2 (08:36→20:13)
[2017-02-08] MEDS: FUROSEMIDE 20 MG TAB PO SCH (08:36)
[2017-02-08] MEDS: PANTOPRAZOLE SODIUM 40 MG TAB PO SCH ×2 (08:36→20:09)
[2017-02-08] MEDS: guaiFENesin 600 MG TAB.ER PO SCH ×3 (08:37→20:11)
[2017-02-08] MEDS: IPRATROPIUM/ALBUTEROL 3 ML DEYVIAL IH SCH ×4 (09:02→21:31)
[2017-02-08] MEDS ORDERED: FUROSEMIDE 20 MG/2 ML VIAL IVP ONE (09:58)
[2017-02-08] MEDS: FLUTICASONE/SALMETER 500/50MCG DISKUS IH SCH ×2 (10:07→21:27)
[2017-02-08] MEDS: TIOTROPIUM INHALER 18 MCG/DOSE 5 DOSE/MDI IH SCH (10:10)
[2017-02-08] MEDS: POLYETHYLENE GLYCOL 3350 17 GM PKT PO SCH (10:22)
[2017-02-08] MEDS: POTASSIUM CL 10 MEQ TAB PO SCH ×2 (10:48→17:15)
[2017-02-08] MEDS: ROSUVASTATIN CALCIUM 10 MG TAB PO SCH (10:49)
[2017-02-08] MEDS: predniSONE 20 MG TAB PO SCH (10:49)
[2017-02-08] MEDS: SENNOSIDES/DOCUSATE SODIUM TAB PO SCH ×2 (10:52→20:10)
[2017-02-08] MEDS: ESCITALOPRAM OXALATE 10 MG TAB PO SCH (12:04)
--- NOTE | 2017-02-08 14:45 | HOSPPROG ---
Hospitalist Progress Note Assessment/Plan: Patient is a 67-year-old female with history COPD and Raynaud's, atrial fibrillation on oral anticoagulation. She presented with several days of coughing and shortness of breath. Chest x-ray reviewed shows perihilar opacities in left upper lobe. * community-acquired pneumonia with associated sepsis On azithromycin and ceftriaxone She is on 2 L of oxygen guaifenesin * COPD Steroids and bronchodilators At baseline she is on 2 L * atrial fibrillation/ sometimes with RVR elevated bnp due to the fast rate/ diuresed Pradaxa echo shows no regional wall abnormalities, ef of 65-70%/mildly dilated ascending aorta * anemia Will follow * chronic hyponatremia Followed by Nephrology in the outpatient setting Patient states she is usually on a fluid restriction * history of Raynaud's with partial finger amputations * plan. continue current treatment/ recheck labs in am/ will need home O2 Subjective: Darlin is breathing better after getting the lasix/ appetite is good. Objective: Vital Signs Temp Pulse Resp BP Pulse Ox 36.7 C 98 18 100/64 90 L 02/08/17 12:00 02/08/17 12:00 02/08/17 12:00 02/08/17 12:00 02/08/17 12:00 Laboratory Results 02/07/17 04:27 02/05/17 04:35 02/07/17 02/08/17 02/09/17 05:59 05:59 05:59 Intake Total 400 675 Output Total 1400 Balance 400 675 -1400 PT 16.4 SEC (12.0-15.0) H 02/03/17 15:41 INR 1.32 (0.83-1.16) H 02/03/17 15:41 - Physical Exam Constitutional: no apparent distress, appears nourished, not in pain Eyes: PERRL Ears, Nose, Mouth, Throat: hearing normal Cardiovascular: regular rate and rhythym Respiratory: no respiratory distress, reduced air movement, other (few crackle in right base) Gastrointestinal: normoactive bowel sounds Skin: warm, normal color Musculoskeletal: no muscle tenderness Neurologic: AAOx3 Psychiatric: interacting appropriately ICD10 Worksheet Patient Problems: Problems Problem Status Onset Chronic obstructive pulmonary disease with acute exacerbation Acute Hypoxemia Acute Pneumonia Acute
[2017-02-09] MEDS: NYSTATIN SUSP 500000 UNIT/5 ML UDCUP PO SCH ×4 (04:54→20:21)
[2017-02-09 05:27] LABS: ADD DIFF? YES; ADD MORPH? NO; ADD SCAN? NO; ATYPICAL LYMPHOCYTE FLAG 40 (0-99); FRAGMENT RBC FLAG 0 (0-99); HEMATOCRIT 32.4 % (38.0-47.0); HEMOGLOBIN 10.9 g/dL (12.6-16.3); LEFT SHIFT FLG 30 (0-99); LIPEMIA HEMOLYSIS FLAG 80 (0-99); MEAN CELL HEMOGLOBIN 29.1 pg (27.9-34.1); MEAN CELL HEMOGLOBIN CONCENTR. 33.6 g/dL (32.4-36.7); MEAN CELL VOLUME 86.4 fL (81.5-99.8); MEAN PLATELET VOLUME 8.1 fL (8.7-11.7); PLATELET CLUMPS FLAG 0 (0-99); PLATELET COUNT 496 10^3/uL (150-400); RED BLOOD CELL COUNT 3.75 10^6/uL (4.18-5.33); RED CELL DISTRIBUTION WIDTH 14.8 % (11.5-15.2)
[2017-02-09 05:44] LABS: ANION GAP 9 mEq/L (8-16); CALCIUM 9.6 mg/dL (8.5-10.4); CARBON DIOXIDE 26 mEq/l (22-31); CHLORIDE 95 mEq/L (97-110); CREATININE 0.9 mg/dL (0.6-1.0); GLOMERULAR FILTRATION RATE > 60; GLUCOSE 96 mg/dL (70-100); POTASSIUM 4.7 mEq/L (3.5-5.2); SODIUM 130 mEq/L (134-144)
[2017-02-09] MEDS: IPRATROPIUM/ALBUTEROL 3 ML DEYVIAL IH SCH ×4 (06:11→22:16)
[2017-02-09 07:02] LABS: ACANTHOCYTES 1+; ELLIPTOCYTES 1+; HYPERSEGMENTED NEUTROPHILS 1+; PLATELET ESTIMATE INCREASED (ADEQ); POLYCHROMASIA 1+; TOXIC GRANULATION PRESENT
[2017-02-09] MEDS: FLUTICASONE/SALMETER 500/50MCG DISKUS IH SCH ×2 (08:12→22:16)
[2017-02-09] MEDS: TIOTROPIUM INHALER 18 MCG/DOSE 5 DOSE/MDI IH SCH (08:13)
[2017-02-09] MEDS: POTASSIUM CL 10 MEQ TAB PO SCH ×3 (09:30→19:07)
[2017-02-09] MEDS: DABIGATRAN ETEXILATE MESYL 150 MG CAP PO SCH ×2 (09:31→20:21)
[2017-02-09] MEDS: ROSUVASTATIN CALCIUM 10 MG TAB PO SCH (09:32)
[2017-02-09] MEDS: POLYETHYLENE GLYCOL 3350 17 GM PKT PO SCH (09:34)
[2017-02-09] MEDS: DILTIAZEM XR 240 MG CAP PO SCH (09:35)
[2017-02-09] MEDS: PANTOPRAZOLE SODIUM 40 MG TAB PO SCH ×2 (09:35→20:22)
[2017-02-09] MEDS: FUROSEMIDE 20 MG TAB PO SCH (09:35)
[2017-02-09] MEDS: predniSONE 20 MG TAB PO SCH (09:37)
[2017-02-09] MEDS: SENNOSIDES/DOCUSATE SODIUM TAB PO SCH ×2 (09:38→20:22)
[2017-02-09] MEDS: OXYBUTYNIN CHLORIDE 5 MG TAB PO SCH ×2 (09:39→20:23)
[2017-02-09] MEDS: guaiFENesin 600 MG TAB.ER PO SCH ×2 (09:39→20:22)
[2017-02-09] MEDS: ESCITALOPRAM OXALATE 10 MG TAB PO SCH (12:06)
--- NOTE | 2017-02-09 13:45 | HOSPPROG ---
Hospitalist Progress Note Assessment/Plan: Patient is a 67-year-old female with history COPD and Raynaud's, atrial fibrillation on oral anticoagulation. She presented with several days of coughing and shortness of breath. Chest x-ray reviewed shows perihilar opacities in left upper lobe. * community-acquired pneumonia with associated sepsis On azithromycin and ceftriaxone She is on 1 L of oxygen guaifenesin * COPD Steroids and bronchodilators At baseline she is on 2 L * atrial fibrillation/ sometimes with RVR elevated bnp due to the fast rate/ diuresed Pradaxa echo shows no regional wall abnormalities, ef of 65-70%/mildly dilated ascending aorta * anemia Will follow * chronic hyponatremia/Na 130 today Followed by Nephrology in the outpatient setting Patient states she is usually on a fluid restriction * history of Raynaud's with partial finger amputations * plan.has f/u with [facility] / will need a very slow taper of prednisone. Not quite ready to be dc/ still very short of breath. Subjective: Darlin is feeling better/ feels she is making small improvements. Objective: Vital Signs Temp Pulse Resp BP Pulse Ox 36.9 C 107 H 18 116/80 95 02/09/17 12:00 02/09/17 12:00 02/09/17 12:00 02/09/17 12:00 02/09/17 12:00 Laboratory Results 02/09/17 04:54 02/09/17 04:54 02/08/17 02/09/17 02/10/17 05:59 05:59 05:59 Intake Total 675 590 Output Total 1400 200 Balance 675 -810 -200 PT 16.4 SEC (12.0-15.0) H 02/03/17 15:41 INR 1.32 (0.83-1.16) H 02/03/17 15:41 - Physical Exam Constitutional: no apparent distress, not in pain Eyes: PERRL Ears, Nose, Mouth, Throat: hearing normal Cardiovascular: regular rate and rhythym Respiratory: no respiratory distress, reduced air movement (lung sounds are decreased at the bases but better) Gastrointestinal: normoactive bowel sounds Skin: warm Musculoskeletal: full muscle strength Neurologic: AAOx3 Psychiatric: interacting appropriately ICD10 Worksheet Patient Problems: Problems Problem Status Onset Chronic obstructive pulmonary disease with acute exacerbation Acute Hypoxemia Acute Pneumonia Acute
[2017-02-10] MEDS: traMADol 50 MG TAB PO PRN ×2 (00:41→13:04)
[2017-02-10] MEDS: IPRATROPIUM/ALBUTEROL 3 ML DEYVIAL IH SCH ×3 (05:50→15:05)
[2017-02-10] MEDS: NYSTATIN SUSP 500000 UNIT/5 ML UDCUP PO SCH ×2 (06:05→11:09)
[2017-02-10] MEDS: FLUTICASONE/SALMETER 500/50MCG DISKUS IH SCH (09:04)
[2017-02-10] MEDS: TIOTROPIUM INHALER 18 MCG/DOSE 5 DOSE/MDI IH SCH (09:08)
[2017-02-10 09:15] VITALS: O2SAT 85
[2017-02-10] MEDS: AZITHROMYCIN 250 MG TAB PO SCH (09:37)
[2017-02-10] MEDS: ROSUVASTATIN CALCIUM 10 MG TAB PO SCH (09:38)
[2017-02-10] MEDS: predniSONE 20 MG TAB PO SCH (09:38)
[2017-02-10] MEDS: DILTIAZEM XR 240 MG CAP PO SCH (09:39)
[2017-02-10] MEDS: guaiFENesin 600 MG TAB.ER PO SCH (09:40)
[2017-02-10] MEDS: POTASSIUM CL 10 MEQ TAB PO SCH (09:41)
[2017-02-10] MEDS: DABIGATRAN ETEXILATE MESYL 150 MG CAP PO SCH (09:41)
[2017-02-10] MEDS: PANTOPRAZOLE SODIUM 40 MG TAB PO SCH (09:42)
[2017-02-10] MEDS: SENNOSIDES/DOCUSATE SODIUM TAB PO SCH (09:42)
[2017-02-10] MEDS: FUROSEMIDE 20 MG TAB PO SCH (09:42)
[2017-02-10] MEDS: POLYETHYLENE GLYCOL 3350 17 GM PKT PO SCH (09:43)
[2017-02-10] MEDS: OXYBUTYNIN CHLORIDE 5 MG TAB PO SCH (09:49)
[2017-02-10] MEDS: ESCITALOPRAM OXALATE 10 MG TAB PO SCH (11:09)
--- NOTE | 2017-02-10 11:33 | HOSPPROG ---
Hospitalist Progress Note Assessment/Plan: Patient is a 67-year-old female with history COPD and Raynaud's, atrial fibrillation on oral anticoagulation. She presented with several days of coughing and shortness of breath. Chest x-ray reviewed shows perihilar opacities in left upper lobe. * community-acquired pneumonia with associated sepsis On azithromycin and ceftriaxone She is on 2 L of oxygen guaifenesin she has received full treatment for her pna will have her get f/u and repeat chest xray in 6 weeks * COPD Steroids and bronchodilators At baseline she is on 2 L * atrial fibrillation/ sometimes with RVR elevated bnp due to the fast rate/ diuresed Pradaxa echo shows no regional wall abnormalities, ef of 65-70%/mildly dilated ascending aorta * anemia Will follow * chronic hyponatremia/ recent Na 130 Followed by Nephrology in the outpatient setting Patient states she is usually on a fluid restriction * history of Raynaud's with partial finger amputations * plan.has f/u with [facility] / will need a very slow taper of prednisone. dc today Subjective: Darlin is feeling much better today/ no complaints. Objective: Vital Signs Temp Pulse Resp BP Pulse Ox 36.6 C 92 16 114/88 H 85 L 02/10/17 08:00 02/10/17 09:09 02/10/17 09:09 02/10/17 08:00 02/10/17 09:09 Laboratory Results 02/09/17 04:54 02/09/17 04:54 02/09/17 02/10/17 02/11/17 05:59 05:59 05:59 Intake Total 590 1250 Output Total 1400 1800 Balance -810 -550 PT 16.4 SEC (12.0-15.0) H 02/03/17 15:41 INR 1.32 (0.83-1.16) H 02/03/17 15:41 - Physical Exam Constitutional: no apparent distress Eyes: PERRL Ears, Nose, Mouth, Throat: hearing normal Cardiovascular: regular rate and rhythym, tachycardia Respiratory: no respiratory distress, reduced air movement Gastrointestinal: normoactive bowel sounds Skin: warm Musculoskeletal: full muscle strength Neurologic: AAOx3 Psychiatric: interacting appropriately ICD10 Worksheet Patient Problems: Problems Problem Status Onset Chronic obstructive pulmonary disease with acute exacerbation Acute Hypoxemia Acute Pneumonia Acute
[2017-02-10 12:23] VITALS: BP 104/57; PULSE 110; RESP 19; TEMP 97.7
--- NOTE | 2017-02-10 12:30 | PDIAF ---
- Diagnosis Diagnosis: community acquired pna, copd exacerbation Code Status: Full Code - Medication Management Discharge Medications: Medications to Continue on Transfer Alendronate Sodium [Fosamax 70 MG (*)] 70 mg PO TH@0700 11/23/14 [Last Taken Unknown] Cholecalciferol Vit D3 [Vitamin D3 (*)] 1,000 units PO DAILY 11/23/14 [Last Taken 02/03/17] Dabigatran Etexilate Mesyl [Pradaxa 150 MG (*)] 150 mg PO BID 11/23/14 [Last Taken 02/03/17] Escitalopram Oxalate [Lexapro 10 MG] 10 mg PO DAILY@11 11/23/14 [Last Taken ] Furosemide [Lasix 20 MG (*)] 20 mg PO DAILY 11/23/14 [Last Taken 02/03/17] Oxybutynin Chloride 5 mg PO BID 11/23/14 [Last Taken 02/03/17] Pantoprazole Sodium [Protonix 40mg (*)] 40 mg PO BID 11/23/14 [Last Taken ] Potassium Cl [Klor-Con 10 meq (RX)] 10 meq PO BIDAC 11/23/14 [Last Taken 08:00] Tiotropium Inhaler [Spiriva Inhaler (RX)] 1 inh IH DAILY 11/23/14 [Last Taken ] Diltiazem HCl [Cardizem Cd] 240 mg PO DAILY #30 cap.er.24h 11/24/14 [Last Taken 02/03/17] Acetaminophen [Tylenol 325mg (*)] 650 mg PO BID PRN 02/03/17 [Last Taken ] Docusate Calcium [Surfak] 480 mg PO DAILY PRN 02/03/17 [Last Taken 02/01/17] Fluticasone/Salmeter 500/50Mcg [Advair 500/50 (*)] 1 puffs IH BID 02/03/17 [ Last Taken 02/03/17 08:00] Rosuvastatin Calcium [Crestor 5mg] 5 mg PO DAILY 02/03/17 [Last Taken 02/03/17 08:00] Acetaminophen [Tylenol 325mg (*)] 650 mg PO Q4HRS PRN #0 tab 02/10/17 [Last Taken Unknown] guaiFENesin [Mucinex 600 MG (*)] 1,200 mg PO BID tab.er 02/10/17 [Last Taken Unknown] predniSONE 30 mg PO DAILY #15 tablet 02/10/17 [Last Taken Unknown] traMADol [Ultram 50 mg (*)] 50 mg PO BID PRN #20 tab 02/10/17 [Last Taken Unknown] Discharge Medications: Refer to the Discharge Home Medication list for PRN reason. - Orders Services needed: Home Care, Registered Nurse, Physical Therapy Home Care Face to Face: I certify that this patient was under my care and that I had the required [id number] encounter meeting the encounter requirements on the discharge day. My findings support the fact that the patient is homebound as defined in CMS Chapter 7 Medicare Benefits Manual 30.1.1, The condition of the patient is such that there exists a normal inability to leave home and consequently, leaving home would require a considerable and taxing effort. Oxygen: 2 Diet Recommendation: no restrictions on diet Diet Texture: Regular Texture Diet Additional: please monitor O2 levels. Darlin needs endurance strengthening/ has underlying copd/ needs to plan acitivites allowing for adequate time for recovery. F/u with [facility] this weds as scheduled. - Follow Up Care Current Providers and Referrals: Ivelisse Izaguirre MD [Primary Care Provider] - As per Instructions Lottie Decker MD [Medical Doctor] -
--- NOTE | 2017-02-10 17:16 | GDS ---
[f rep st] DISCHARGE SUMMARY DISCHARGE DIAGNOSES: 1. Community-acquired pneumonia with associated sepsis. 2. Chronic obstructive pulmonary disease/exacerbation. 3. Atrial fibrillation. 4. Anemia. 5. Chronic hyponatremia. 6. History of Raynaud with partial finger amputation. HISTORY OF PRESENT ILLNESS: The patient is a 67-year-old female with a history of COPD and Raynaud, atrial fibrillation, on oral anticoagulation. She presented to the emergency room with several days of coughing and shortness of breath. She had a chest x-ray performed, which showed a perihilar opacity in the left upper lobe. During her stay, she was treated IV antibiotics. She will be discharged home, and follow up with her primary care provider. HOSPITAL COURSE: 1. Community-acquired pneumonia with associated sepsis. She has improved. She has received full treatment with IV antibiotics. Will have her get followup and repeat chest x-ray in 6 weeks. 2. COPD. She is on a slow wean of steroids. Will continue bronchodilators. She is at her baseline on 2 L of oxygen. 3. Atrial fibrillation. Intermittently she has rapid ventricular rate with this which resolves without any intervention. She is on Pradaxa and Diltiazem. An echocardiogram was performed, which shows no regional wall abnormalities. She had an ejection fraction of 65% to 70% with mildly dilated ascending aorta. 4. Anemia, stable. Further followup with her PCP. 5. Chronic hyponatremia. Most recent sodium is 130. She is always on fluid restrictions. 6. History of Raynaud with partial finger amputations. CONDITION AT DISCHARGE: Stable. Blood pressure is 114/88, heart rate is 99, respiratory rate is 20, O2 saturation on 1 L is 96%, temperature is 36.6 Celsius. MEDICATIONS AT DISCHARGE: Please see the EMR. DISCHARGE INSTRUCTIONS: 1. Recommending a very slow wean off the prednisone. 2. To follow up with [facility] as scheduled on Saturday this week. 3. To follow up with either Dr. Ivelisse Izaguirre at the [facility] or with Dr. Lottie Decker. Greater than 30 minutes discharging and coordinating the patient's care. /[id number]/MODL MTDD
== END 2017-02-10 15:51 | disposition home health service (06) | DRG 871 ==
LOC: OBSVTOIN 15:59 → UNDOADMOB 15:59 → INTOOBSV 15:59 → F3E 16:58 → OBSVTOIN 18:20 → F3E 18:20 → INTOOBSV 02-04 21:06 → OBSVTOIN 02-04 21:06
PROVIDERS: ADMIT Internal Medicine; ATTEND Internal Medicine
DX: A41.9 Sepsis, unspecified organism (principal); J18.8 Other pneumonia, unspecified organism; J44.1 Chronic obstructive pulmonary disease with (acute) exacerbation; E87.1 Hypo-osmolality and hyponatremia; I48.91 Unspecified atrial fibrillation; D64.9 Anemia, unspecified; I73.00 Raynaud's syndrome without gangrene; I10 Essential (primary) hypertension; Z79.01 Long term (current) use of anticoagulants; Z89.029 Acquired absence of unspecified finger(s)
CPT/HCPCS: 96365; 97110-GO; 97116-GP; 97161-GP; 97165-GO; 97535-GO; G0378; G8978-GP-CI; G8979-GP-CH; G8987-GO-CI; G8988-GO-CI; G8989-GO-CI; J0456; J0696; J1100; J1940

== ENCOUNTER 2017-03-01 13:40 | Emergency (ER) | payer OTHER ==
[2017-03-01 13:49] VITALS: TEMP 98.6
--- NOTE | 2017-03-01 14:00 | EDPHY ---
H & P Stated Complaint: pt with foor swelling/hx afib sent from pc Time Seen by Provider: 03/01/17 13:53 HPI/ROS: CHIEF COMPLAINT: Increasing bilateral lower extremity edema, dyspnea HISTORY OF PRESENT ILLNESS: The patient has a history of atrial fibrillation, COPD chronically anticoagulated with recent hospitalization for pneumonia who presents to the ED with complaints of increasing dyspnea and lower extremity edema for the past 2-3 days. The patient reports that her primary care provider increased her dose of diltiazem. She has doubled her dose of Lasix to 20 mg twice daily over the past 2 days. She denies fever, cough or congestion. The patient is on chronic oxygen as well as a number of home with nebulizers. The patient denies any complaints of acute abdominal pain, melena or neurologic symptoms. She was seen at her primary care provider's and referred to the ED for further evaluation. REVIEW OF SYSTEMS: A comprehensive 10 point review of systems is otherwise negative aside from elements mentioned in the history of present illness. Source: Patient - Personal History Current Tetanus/Diphtheria Vaccine: Yes Tetanus Vaccine Date: 2010 - Medical/Surgical History Hx Asthma: No Hx Chronic Respiratory Disease: Yes Hx Diabetes: No Hx Cardiac Disease: Yes Hx Renal Disease: No Hx Cirrhosis: No Hx Alcoholism: Yes Hx HIV/AIDS: No Hx Splenectomy or Spleen Trauma: No Other PMH: HTN, COPD, blood clots, A Fib, Raynaud's, LEFT FIRST FINGER AMPUTATION - Social History Smoking Status: Never smoked - Physical Exam Exam: General Appearance: Alert, no distress Eyes: Pupils equal and round no pallor or injection ENT, Mouth: Mucous membranes moist Respiratory: There are no retractions, lungs are clear to auscultation Cardiovascular: Irregular, rate 95 Gastrointestinal: Abdomen is soft and nontender, no masses, bowel sounds normal Neurological: A&O, normal motor function, normal sensory exam, normal cranial nerves Skin: Warm and dry, no rashes Musculoskeletal: Neck is supple nontender Extremities: 1+ bilateral lower extremity edema Constitutional: Initial Vital Signs Temperature (C) 37 C 03/01/17 13:46 Heart Rate 103 H 03/01/17 13:46 Respiratory Rate 22 H 03/01/17 13:46 Blood Pressure 120/75 03/01/17 13:46 O2 Sat (%) 94 03/01/17 13:46 O2 Delivery Mode Nasal Cannula O2 (L/minute) 2 Allergies/Adverse Reactions: Penicillins Allergy (Severe, Verified 07/13/11 19:38) Anaphylaxis Sulfa (Sulfonamide Antibiotics) Allergy (Severe, Verified 07/13/11 19:38) Anaphylaxis codeine [Codeine] Allergy (Intermediate, Verified 07/13/11 19:38) Vomiting Shellfish *RETIRED-03/17/12 [Shellfish] Allergy (Intermediate, Verified 19:38) Hives cetylpyridinium chloride Allergy (Unknown, Unverified 02/15/17 11:01) DOG Allergy (Mild, Uncoded 07/13/11 19:38) Itching SEASONAL Allergy (Mild, Uncoded 07/13/11 19:38) Shellfish *RETIRED-03/17/12 Allergy (Unknown, Uncoded 02/15/17 13:01) Hives Home Medications: Medication Instructions Recorded Alendronate Sodium [Fosamax 70 MG 70 mg PO TH@0700 11/23/14 (*)] Cholecalciferol Vit D3 [Vitamin D3 1,000 units PO DAILY 11/23/14 (*)] Dabigatran Etexilate Mesyl 150 mg PO BID 11/23/14 [Pradaxa 150 MG (*)] Escitalopram Oxalate [Lexapro 10 10 mg PO DAILY@11 11/23/14 MG] Furosemide [Lasix 20 MG (*)] 20 mg PO DAILY 11/23/14 Oxybutynin Chloride 5 mg PO BID 11/23/14 Pantoprazole Sodium [Protonix 40mg 40 mg PO BID 11/23/14 (*)] Potassium Cl [Klor-Con 10 meq (RX)] 10 meq PO BIDAC 11/23/14 Tiotropium Inhaler [Spiriva 1 inh IH DAILY 11/23/14 Inhaler (RX)] Diltiazem HCl [Cardizem Cd] 240 mg PO DAILY #30 cap.er.24h 11/24/14 Acetaminophen [Tylenol 325mg (*)] 650 mg PO BID PRN 02/03/17 Docusate Calcium [Surfak] 480 mg PO DAILY PRN 02/03/17 Fluticasone/Salmeter 500/50Mcg 1 puffs IH BID 02/03/17 [Advair 500/50 (*)] Rosuvastatin Calcium [Crestor 5mg] 5 mg PO DAILY 02/03/17 Acetaminophen [Tylenol 325mg (*)] 650 mg PO Q4HRS PRN #0 tab 02/10/17 guaiFENesin [Mucinex 600 MG (*)] 1,200 mg PO BID tab.er 02/10/17 predniSONE 30 mg PO DAILY #15 tablet 02/10/17 traMADol [Ultram 50 mg (*)] 50 mg PO BID PRN #20 tab 02/10/17 Medical Decision Making - Diagnostics EKG Interpretation: EKG: Complete interpretation has been separately recorded in the [id number] archive. Summary impression: Atrial fibrillation, rate 102 Imaging Results: Imaging Impressions Chest X-Ray 03/01/17 14:00 Impression: 1. Mild fluid overload suspected. ED Course/Re-evaluation: The patient presents to the ED with increasing lower extremity edema with a history of chronic atrial fibrillation. In the ED, the patient is rate controlled. She does have some very mild volume overload noted on her chest x- ray. She has not had mildly elevated BNP level. In the ED, the patient did receive 20 mg of IV Lasix. The patient's EKG demonstrates rate controlled atrial fibrillation without ischemic changes. The patient is currently on a calcium channel gabi and may be contributing to her lower extremity edema. At this point time she has no evidence of acute hypoxemia, no evidence of acute ischemia and likely dyspnea secondary to mild CHF. I do feel the patient can increase her Lasix to 20 mg twice daily for the next several days. The patient has been instructed to follow up with her regular physician at [facility]. She should return to the emergency department for markedly worsening dyspnea, difficulty breathing or other concerns. Differential Diagnosis: Differential diagnosis considered includes pneumonia, congestive heart failure, peripheral edema, medication side effect, atrial fibrillation with rapid ventricular response - Data Points Laboratory Results: Laboratory Results 03/01/17 14:30 03/01/17 14:30 03/01/17 03/01/17 03/01/17 14:30 14:30 14:30 WBC 10.17 10^3/uL H 10^3/uL (3.80-9.50) RBC 3.34 10^6/uL L 10^6/uL (4.18-5.33) Hgb 9.7 g/dL L g/dL (12.6-16.3) Hct 30.3 % L % (38.0-47.0) MCV 90.7 fL fL (81.5-99.8) MCH 29.0 pg pg (27.9-34.1) MCHC 32.0 g/dL L g/dL (32.4-36.7) RDW 15.5 % H % (11.5-15.2) Plt Count 291 10^3/uL 10^3/uL (150-400) MPV 8.0 fL L fL (8.7-11.7) Neut % (Auto) 75.4 % H % (39.3-74.2) Lymph % (Auto) 15.2 % % (15.0-45.0) Swain % (Auto) 6.9 % % (4.5-13.0) Eos % (Auto) 1.7 % % (0.6-7.6) Baso % (Auto) 0.4 % % (0.3-1.7) Nucleat RBC Rel Count 0.0 % % (0.0-0.2) Absolute Neuts (auto) 7.67 10^3/uL H 10^3/uL (1.70-6.50) Absolute Lymphs (auto) 1.55 10^3/uL 10^3/uL (1.00-3.00) Absolute Monos (auto) 0.70 10^3/uL 10^3/uL (0.30-0.80) Absolute Eos (auto) 0.17 10^3/uL 10^3/uL (0.03-0.40) Absolute Basos (auto) 0.04 10^3/uL 10^3/uL (0.02-0.10) Absolute Nucleated RBC 0.00 10^3/uL 10^3/uL (0-0.01) Immature Gran % 0.4 % % (0.0-1.1) Immature Gran # 0.04 10^3/uL 10^3/uL (0.00-0.10) PT 15.3 SEC H SEC (12.0-15.0) INR 1.21 H (0.83-1.16) APTT 49.0 SEC H SEC (23.0-38.0) Sodium 131 mEq/L L mEq/L (134-144) Potassium 4.2 mEq/L mEq/L (3.5-5.2) Chloride 94 mEq/L L mEq/L (97-110) Carbon Dioxide 26 mEq/l mEq/l (22-31) Anion Gap 11 mEq/L mEq/L (8-16) BUN 16 mg/dL mg/dL (7-23) Creatinine 1.0 mg/dL mg/dL (0.6-1.0) Estimated GFR 55 Glucose 81 mg/dL mg/dL (70-100) Calcium 9.1 mg/dL mg/dL (8.5-10.4) Troponin I < 0.012 ng/mL ng/mL (0.000-0.034) NT-Pro-B Natriuret Pep 1590 pg/mL H pg/mL (0-125) Departure - Departure Disposition: Home, Routine, Self-Care Clinical Impression: Atrial fibrillation, Pedal edema Condition: Good Instructions: Leg Edema (ED) Additional Instructions: 1. Please continue taking Lasix 20 mg twice a day. 2. Please return to the ED for markedly worsening chest pain, shortness of breath or other concerns. 3. Please follow up with your primary care provider and manager materials management at [facility] as scheduled. Referrals: Ivelisse Izaguirre MD [Primary Care Provider] - As per Instructions
--- NOTE | 2017-03-01 14:07 | CPEKG ---
Heart Rate: 102 RR Interval: 588 QRSD Interval: 68 QT Interval: 332 QTC Interval: 433 QRS [place]: 36 EKG Severity - ABNORMAL ECG - EKG Impression: ATRIAL FIBRILLATION, V-RATE 76-126 Electronically Signed By: Luca Quiles 01-Mar-2017 14:19:27
[2017-03-01 14:38] LABS: % IMMATURE GRANULYOCYTES 0.4 % (0.0-1.1); ABSOLUTE IMMATURE GRANULOCYTES 0.04 10^3/uL (0.00-0.10); ADD DIFF? NO; ADD MORPH? NO; ADD SCAN? NO; ATYPICAL LYMPHOCYTE FLAG 20 (0-99); FRAGMENT RBC FLAG 0 (0-99); HEMATOCRIT 30.3 % (38.0-47.0); HEMOGLOBIN 9.7 g/dL (12.6-16.3); LEFT SHIFT FLG 0 (0-99); LIPEMIA HEMOLYSIS FLAG 80 (0-99); MEAN CELL VOLUME 90.7 fL (81.5-99.8); PLATELET CLUMPS FLAG 10 (0-99); PLATELET COUNT 291 10^3/uL (150-400); RED BLOOD CELL COUNT 3.34 10^6/uL (4.18-5.33); RED CELL DISTRIBUTION WIDTH 15.5 % (11.5-15.2)
[2017-03-01 14:46] LABS: INR 1.21 (0.83-1.16); PROTIME(PATIENT) 15.3 SEC (12.0-15.0)
[2017-03-01 15:01] LABS: ANION GAP 11 mEq/L (8-16); CALCIUM 9.1 mg/dL (8.5-10.4); CARBON DIOXIDE 26 mEq/l (22-31); CHLORIDE 94 mEq/L (97-110); GLOMERULAR FILTRATION RATE 55; GLUCOSE 81 mg/dL (70-100); POTASSIUM 4.2 mEq/L (3.5-5.2); SODIUM 131 mEq/L (134-144)
[2017-03-01] MEDS ORDERED: FUROSEMIDE 20 MG/2 ML VIAL IVP ONE (15:02)
[2017-03-01 15:13] LABS: TROPONIN I < 0.012 ng/mL (0.000-0.034)
[2017-03-01 15:52] VITALS: BP 113/72; PULSE 96; RESP 16; O2SAT 92
== END 2017-03-01 15:50 | disposition home or self-care (01) ==
DX: I48.91 Unspecified atrial fibrillation (principal); R60.0 Localized edema; I10 Essential (primary) hypertension; J44.9 Chronic obstructive pulmonary disease, unspecified
CPT/HCPCS: 71010; 93005; 96374; 99285; J1940

== ENCOUNTER → 2017-08-30 | Outpatient (CLI) | payer OTHER | LOC: FIMAGING 12:58 | PROVIDERS: ATTEND Family Medicine | DX: Z12.31 Encounter for screening mammogram for malignant neoplasm of breast (principal); Z13.820 Encounter for screening for osteoporosis; M81.0 Age-related osteoporosis without current pathological fracture ==

== ENCOUNTER 2017-10-29 12:03 | Inpatient (IN) | payer OTHER ==
[2017-10-29] MEDS ORDERED: NS 2,000 ML IV ONE (13:07)
[2017-10-29] MEDS ORDERED: IPRATROPIUM/ALBUTEROL 3 ML DEYVIAL IH ONE (13:10)
[2017-10-29] MEDS ORDERED: methylPREDNISolone SOD SUCC 125 MG/2 ML VIAL IVP ONE (13:10)
--- NOTE | 2017-10-29 13:10 | EDPHY ---
H & P Stated Complaint: cough, decreased oxygen sent from [facility] Time Seen by Provider: 10/29/17 12:59 HPI/ROS: CHIEF COMPLAINT: Pneumonia HISTORY OF PRESENT ILLNESS: The patient is a 67-year-old female with a history of atrial fibrillation and COPD with nocturnal hypoxia who comes to the emergency department complaining of increased shortness of breath and cough. No fever. She was seen by her primary at [facility] today diagnosed clinically with pneumonia and sent to the ER. She was hypoxic at 84% on room air. She has not had any swelling in her extremities. She denies chest pain. She states that she has been using her albuterol and Advair with moderate improvement. She does not feel lightheaded or dizzy. REVIEW OF SYSTEMS: Constitutional: denies: chills, fever, recent illness, recent injury EENTM: denies: blurred vision, double vision, nose congestion Respiratory: See HPI Cardiac: denies: chest pain, irregular heart rate, lightheadedness, palpitations Gastrointestinal/Abdominal: denies: abdominal pain, diarrhea, nausea, vomiting, blood streaked stools Genitourinary: denies: dysuria, frequency, hematuria, pain Musculoskeletal: denies: joint pain, muscle pain Skin: denies: lesions, rash, jaundice, bruising Neurological: denies: headache, numbness, paresthesia, tingling, dizziness, weakness Hematologic/Lymphatic: denies: blood clots, easy bleeding, easy bruising Immunologic/allergic: denies: HIV/AIDS, transplant EXAM: GENERAL: Well-appearing, well-nourished and in no acute distress. HEAD: Atraumatic, normocephalic. EYES: Pupils equal round and reactive to light, extraocular movements intact, sclera anicteric, conjunctiva are normal. ENT: TMs normal, nares patent, oropharynx clear without exudates. Moist mucous membranes. NECK: Normal range of motion, supple without lymphadenopathy or JVD. LUNGS: Bilateral lower lobe rhonchi, minimal wheezing HEART: Regular rate and rhythm without murmurs, rubs or gallops. ABDOMEN: Soft, nontender, normoactive bowel sounds. No guarding, no rebound. No masses appreciated. BACK: No CVA tenderness, no spinal tenderness, step-offs or deformities EXTREMITIES: Normal range of motion, no pitting or edema. No clubbing or cyanosis. NEUROLOGICAL: Cranial nerves II through XII grossly intact. Normal speech, normal gait. 5/5 strength, normal movement in all extremities, normal sensation PSYCH: Normal mood, normal affect. SKIN: Warm, dry, normal turgor, no visible rashes or lesions. Source: Patient Exam Limitations: No limitations - Personal History Current Tetanus Diphtheria and Acellular Pertussis (TDAP): No Tetanus Vaccine Date: 2010 - Medical/Surgical History Hx Asthma: No Hx Chronic Respiratory Disease: Yes Hx Diabetes: No Hx Cardiac Disease: Yes Hx Renal Disease: No Hx Cirrhosis: No Hx Alcoholism: Yes Hx HIV/AIDS: No Hx Splenectomy or Spleen Trauma: No Other PMH: HTN, COPD, blood clots, A Fib, Raynaud's, LEFT FIRST FINGER AMPUTATION - Family History Significant Family History: No pertinent family hx - Social History Smoking Status: Never smoked Alcohol Use: None Constitutional: Initial Vital Signs Temperature (C) 36.9 C 10/29/17 12:10 Heart Rate 79 10/29/17 12:10 Respiratory Rate 22 H 10/29/17 12:10 Blood Pressure 95/55 L 10/29/17 12:10 O2 Sat (%) 87 L 10/29/17 12:10 O2 Delivery Mode Room Air O2 (L/minute) 2 Allergies/Adverse Reactions: Penicillins Allergy (Severe, Verified 10/29/17 14:32) Anaphylaxis Sulfa (Sulfonamide Antibiotics) Allergy (Severe, Verified 10/29/17 14:32) Anaphylaxis codeine [Codeine] Allergy (Intermediate, Verified 10/29/17 14:32) Vomiting Shellfish *RETIRED-03/17/12 [Shellfish] Allergy (Intermediate, Verified 19:38) Hives cetylpyridinium chloride Allergy (Unknown, Verified 10/29/17 14:32) DOG Allergy (Mild, Uncoded 07/13/11 19:38) Itching SEASONAL Allergy (Mild, Uncoded 07/13/11 19:38) Shellfish *RETIRED-03/17/12 Allergy (Unknown, Uncoded 02/15/17 13:01) Hives Home Medications: Medication Instructions Recorded Alendronate Sodium [Fosamax 70 MG 70 mg PO TH@0700 11/23/14 (*)] Cholecalciferol Vit D3 [Vitamin D3 1,000 units PO DAILY 11/23/14 (*)] Dabigatran Etexilate Mesyl 150 mg PO BID 11/23/14 [Pradaxa 150 MG (*)] Escitalopram Oxalate [Lexapro 10 10 mg PO DAILY@11 11/23/14 MG] Furosemide [Lasix 20 MG (*)] 20 mg PO BIDDIUR 11/23/14 Oxybutynin Chloride 5 mg PO BID 11/23/14 Pantoprazole Sodium [Protonix 40mg 40 mg PO BID 11/23/14 (*)] Potassium Cl [Klor-Con 10 meq (RX)] 10 meq PO BIDAC 11/23/14 Tiotropium Inhaler [Spiriva 1 inh IH DAILY 11/23/14 Inhaler (RX)] Docusate Calcium [Surfak] 480 mg PO DAILY PRN 02/03/17 Fluticasone/Salmeter 500/50Mcg 1 puffs IH BID 02/03/17 [Advair 500/50 (*)] Rosuvastatin Calcium [Crestor 5mg] 5 mg PO DAILY 02/03/17 Acetaminophen [Tylenol 325mg (*)] 650 mg PO Q4HRS PRN #0 tab 02/10/17 Diltiazem HCl [Diltiazem 24Hr Cd] 120 mg PO DAILY 10/29/17 traMADol [Ultram 50 mg (*)] 100 mg PO Q6 PRN 10/29/17 Medical Decision Making - Diagnostics Imaging: I viewed and interpreted images myself (Left lower lobe infiltrate) ED Course/Re-evaluation: Patient feels slightly better after albuterol and steroids. She does have an infiltrate on her x-ray. She is hypoxic on room air. I recommended admission the hospital. She states that she gets swollen lips with penicillin. the patient's blood pressure improved rapidly with IV fluids. She looks well but because of her elevated INR qualifies for severe sepsis. 2:40 p.m. I discussed the case with Dr. Madrid who will admit the medical service. Differential Diagnosis: Partial list of the Differential diagnosis considered include but were not limited to; pneumonia, COPD exacerbation, CHF, sepsis and although unlikely based on the history and physical exam, I also considered aneurysm, acute coronary disease. Critical Care Time: Critical care time spent by me, Dr. Yuan exclusive with this patient was 45 minutes, exclusive of the PA time exclusive of procedures. The organ system that was at risk was cardiovascular, pulmonary and I gave diagnosis, antibiotics , fluids to prevent worsening of the patient's condition - Data Points Laboratory Results: Laboratory Results 10/29/17 12:32 10/29/17 12:32 Microbiology Results: MICROBIOLOGY 10/29/17 12:32 Blood Blood Culture - Preliminary Gram Positive Cocci Chains 10/29/17 12:32 Blood Blood Panel (PCR) - Final Streptococcus 10/29/17 13:30 Nasal, Sinus - Swab Respiratory Panel (PCR) - Final Human Metapneumovirus Detected Medications Given: Acetaminophen (Tylenol) 650 mg PO Q4HRS PRN PRN Reason: Pain, Mild/Fever, Can Take PO Stop: 04/27/18 14:59 Last Admin: 10/30/17 09:08 Dose: 650 mg Albuterol/Ipratropium (Duoneb) 3 ml IH QID [facility] Stop: 04/27/18 15:59 Last Admin: 10/30/17 09:25 Dose: 3 ml Benzonatate (Tessalon Pearles) 100 mg PO TID PRN PRN Reason: Cough, Mild Stop: 04/28/18 12:05 Last Admin: 10/30/17 13:45 Dose: 100 mg Cholecalciferol (Vitamin D) 1,000 units PO DAILY PRIYANKA Stop: 04/28/18 08:59 Last Admin: 10/30/17 08:41 Dose: 1,000 units Dabigatran (Pradaxa) 150 mg PO BID [facility] Stop: 04/27/18 20:59 Last Admin: 10/30/17 08:42 Dose: 150 mg Diltiazem HCl (Cardizem Er Q24hr) 120 mg PO DAILY PRIYANKA Stop: 04/28/18 08:59 Last Admin: 10/30/17 08:41 Dose: 120 mg Docusate Sodium (Colace) 100 mg PO BID PRN PRN Reason: Constipation Stop: 04/27/18 22:14 Last Admin: 10/30/17 09:09 Dose: 100 mg Escitalopram Oxalate (Lexapro) 10 mg PO DAILY@11 [facility] Stop: 04/28/18 10:59 Last Admin: 10/30/17 09:09 Dose: 10 mg Flecainide Acetate (Tambocor) 50 mg PO BID PRIYANKA Stop: 04/27/18 20:59 Last Admin: 10/30/17 09:07 Dose: 50 mg Furosemide (Lasix) 20 mg PO BID PRIYANKA Stop: 04/28/18 08:59 Last Admin: 10/30/17 09:09 Dose: 20 mg Guaifenesin/Dextromethorphan (Robitussin Dm Oral Liquid) 10 ml PO Q4HRS PRN PRN Reason: Cough, Moderate Stop: 04/28/18 03:35 Last Admin: 10/30/17 09:06 Dose: 10 ml Levofloxacin/Dextrose (Levaquin 750 Mg (Premix)) 150 mls @ 100 mls/hr IV DAILY PRIYANKA PRN Reason: Protocol Stop: 11/29/17 08:59 Last Admin: 10/30/17 08:41 Dose: 150 mls Metoprolol Succinate (Toprol Xl) 25 mg PO DAILY PRIYANKA Stop: 04/27/18 21:44 Last Admin: 10/30/17 09:07 Dose: 25 mg Oxybutynin Chloride (Ditropan) 5 mg PO BID PRIYANKA Stop: 04/27/18 20:59 Last Admin: 10/30/17 08:41 Dose: 5 mg Pantoprazole Sodium (Protonix) 40 mg PO BID PRIYANKA Stop: 04/27/18 20:59 Last Admin: 10/30/17 09:15 Dose: 40 mg Rosuvastatin Calcium (Crestor) 5 mg PO DAILY PRIYANKA Stop: 04/28/18 08:59 Last Admin: 10/30/17 09:07 Dose: 5 mg Fluticasone/Salmeterol (Advair) 1 puffs IH BID PRIYANKA Stop: 04/27/18 20:59 Last Admin: 10/30/17 09:24 Dose: 1 inh Tiotropium [place] (Spiriva Handihaler) 18 mcg IH DAILY PRIYANKA Stop: 04/28/18 08:59 Last Admin: 10/30/17 09:24 Dose: 1 inh Tramadol HCl (Ultram) 100 mg PO Q6 PRN PRN Reason: PAIN,MODERATE Stop: 04/27/18 16:16 Last Admin: 10/29/17 22:22 Dose: 100 mg Discontinued Medications Albuterol/Ipratropium (Duoneb) 3 ml IH EDNOW ONE Stop: 10/29/17 13:11 Last Admin: 10/29/17 13:19 Dose: 3 ml Sodium Chloride (Ns) 2,000 mls @ 4,000 mls/hr 30 ml/kg infuse over 30 min ( 2000 ml) IV EDNOW ONE PRN Reason: Protocol Stop: 10/29/17 13:36 Last Admin: 10/29/17 13:18 Dose: 2,000 mls Levofloxacin/Dextrose (Levaquin 750 Mg (Premix)) 150 mls @ 100 mls/hr IV EDNOW ONE PRN Reason: Protocol Stop: 10/29/17 15:51 Last Admin: 10/29/17 14:38 Dose: 150 mls Methylprednisolone Sodium Succinate (Solu-Medrol) 125 mg IVP EDNOW ONE Stop: 10/29/17 13:11 Last Admin: 10/29/17 13:19 Dose: 125 mg Prednisone (Prednisone) 60 mg PO ONCE ONE Stop: 10/29/17 15:05 Last Admin: 10/29/17 18:05 Dose: 60 mg Departure - Departure Disposition: [facility] Inpatient Acute Clinical Impression: Pneumonia Qualifiers: Pneumonia type: due to unspecified organism Laterality: unspecified laterality Lung location: lower lobe of lung Qualified Code(s): J18.1 - Lobar pneumonia, unspecified organism Condition: Fair
[2017-10-29 13:14] LABS: PLATELET COUNT 275 10^3/uL (150-400)
[2017-10-29 13:19] LABS: INR 1.84 (0.83-1.16); PROTIME(PATIENT) 21.3 SEC (12.0-15.0)
[2017-10-29] MEDS ORDERED: ONDANSETRON 4 MG/2 ML VIAL IVP PRN (15:00)
[2017-10-29] MEDS ORDERED: ONDANSETRON DISINTEGRATING 4 MG TAB PO PRN (15:00)
[2017-10-29] MEDS ORDERED: predniSONE 20 MG TAB PO ONE (15:04)
--- NOTE | 2017-10-29 15:30 | GHP ---
[f rep st] HISTORY AND PHYSICAL DATE OF ADMISSION: 10/29/2017 HISTORY OF PRESENT ILLNESS: The patient is a 67-year-old female with history of atrial fibrillation, nocturnal hypoxia, and arterial embolus, who presents with increasing shortness of breath. She was seen at her primary care physician's last week and diagnosed clinically with pneumonia without a ches t x-ray and given azithromycin. She did poorly over the weekend with cough productive of yellow sput um as well as some subjective chills, shortness of breath, and just general malaise. She takes Qing xa as a blood thinner, and she has been compliant with that. She has not had palpitations. She soug ht care today again because she continued to feel poorly; was found to be 84% on room air and referre d to the emergency department. She has had no lower extremity edema. A bit of diarrhea. No vomiting. Some nausea. No rash on her skin. She does not smoke. REVIEW OF SYSTEMS: A complete 10-point review of systems has been conducted and is negative except a s noted in the HPI. PAST MEDICAL HISTORY: 1. Atrial fibrillation. 2. Raynaud syndrome. 3. 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 4. Asthma. 5. Hyperlipidemia. 6. COPD. ALLERGIES: Penicillin, sulfa, codeine, shellfish, cetylpyridinium, dog, seasons, and shellfish, whic h she has been retired. HOME MEDICATIONS: Tramadol, Mucinex, tiotropium, rosuvastatin, potassium chloride, pantoprazole, oxy butynin, Lasix, Advair, escitalopram, docusate, diltiazem, dabigatran, alendronate, vitamin D3, and T ylenol. SOCIAL HISTORY: She lives in [place]. She is here with her sister. She does not smoke cigarettes; she quit 6 years ago. She does not drink alcohol. FAMILY HISTORY: Parents . Sisters in good health. PHYSICAL EXAMINATION: VITAL SIGNS: Temp 36.9, blood pressure 95/55, pulse 79, breathing 20 times a minute, 87% in room air, and 94% on 2 L. General: No acute distress. Coughing. HEENT: Sclerae an icteric. Oropharynx clear. Mucous membranes moist. NECK: Supple, without lymphadenopathy or JVD. LUNGS: Crackles bilaterally with good air movement and scattered wheezes. HEART: S1, S2 without m urmurs. It is regular. ABDOMEN: Soft, nontender, nondistended. LOWER EXTREMITIES: No edema. Ricky ves are nontender. SKIN: Without rash. NEUROLOGIC: Nonfocal. Chest x-ray interpreted by me shows left lower lobe pneumonia. LABORATORY DATA: White count 12.7 with a left shift, hematocrit 39, platelets are 275,000. INR is 1 .84. Venous lactate 1.2 (normal value). Sodium 133, potassium 3.7, chloride 95, bicarb 26, BUN 9, c reatinine 0.9, glucose 100. Discussed the case Dr. Darryl Yuan. ASSESSMENT/PLAN: A 67-year-old female with comorbidities, here with community-acquired pneumonia. 1. Pneumonia: She received azithromycin as an outpatient and failed it. The ER started levofloxaci n, which is reasonable choice. I will continue this. She does not have sepsis. 2. Acute hypoxemic respiratory failure: This is attributable to airspace disease plus-minus broncho spasm. I will give her a 1 time dose of 60 of prednisone, as she says she gets "puffy" with steroids and does not want to continue them. Will schedule DuoNeb q.i.d., and I will continue her inhalers, and they have been reconciled. 3. History of arterial embolism: Continue her Pradaxa. 4. Atrial fibrillation: Patient has paroxysmal atrial fibrillation that appears to be under control . There is no indication on telemetry. 5. Prophylaxis: Pharmacologic prophylaxis indicated, but the patient is therapeutically anticoagula katelyn. DISPOSITION: She is an inpatient status. /[id number]/MODL
[2017-10-29] MEDS ORDERED: DOCUSATE CALCIUM PO PRN (16:17)
--- NOTE | 2017-10-29 17:11 | PDMN ---
Medical Necessity Medical necessity: M282 cPNA- A-2 days: increasing SOB, failed azithromycin last week, productive cough, chills, general malaise. RA sats 84%, 94 % 2L., hx afib, nocturnal hypoxia, arterial embolus. Raynaud syndrome, asthma, hyperlipidemia, COPD.
[2017-10-29] MEDS: IPRATROPIUM/ALBUTEROL 3 ML DEYVIAL IH SCH ×2 (17:52→21:33)
[2017-10-29] MEDS: ACETAMINOPHEN 325 MG TAB PO PRN ×2 (18:17→22:24)
[2017-10-29] MEDS: PANTOPRAZOLE SODIUM 40 MG TAB PO SCH (21:05)
[2017-10-29] MEDS: DABIGATRAN ETEXILATE MESYL 150 MG CAP PO SCH (21:06)
[2017-10-29] MEDS: OXYBUTYNIN CHLORIDE 5 MG TAB PO SCH (21:06)
[2017-10-29] MEDS: FLUTICASONE/SALMETER 500/50MCG DISKUS IH SCH (21:33)
[2017-10-29] MEDS: METOPROLOL SUCCINATE XR 25 MG TAB PO SCH (21:49)
[2017-10-29] MEDS: FLECAINIDE ACETATE 100 MG TAB PO SCH (21:50)
[2017-10-29] MEDS: traMADol 50 MG TAB PO PRN (22:22)
[2017-10-29] MEDS: DOCUSATE SODIUM 100 MG CAP PO PRN (22:24)
[2017-10-30] MEDS: GUAIFENESIN/DM 10 ML UDCUP PO PRN ×2 (04:18→09:06)
[2017-10-30] MEDS: ACETAMINOPHEN 325 MG TAB PO PRN ×2 (04:38→09:08)
[2017-10-30 05:45] LABS: PLATELET COUNT 220 10^3/uL (150-400)
[2017-10-30] MEDS: IPRATROPIUM/ALBUTEROL 3 ML DEYVIAL IH SCH ×4 (06:02→21:54)
[2017-10-30] MEDS ORDERED: DOCUSATE CALCIUM PO PRN (08:30)
[2017-10-30] MEDS: CHOLECALCIFEROL VIT D3 1,000 UNITS TAB PO SCH (08:41)
[2017-10-30] MEDS: OXYBUTYNIN CHLORIDE 5 MG TAB PO SCH ×2 (08:41→20:48)
[2017-10-30] MEDS: DILTIAZEM CD 120 MG CAP PO SCH (08:41)
[2017-10-30] MEDS: DABIGATRAN ETEXILATE MESYL 150 MG CAP PO SCH ×2 (08:42→20:48)
[2017-10-30] MEDS ORDERED: NON-FORMULARY NEW DRUG (Rosuvastatin Calcium [Crestor 5mg] 5 MG) PO SCH (09:00)
[2017-10-30] MEDS: METOPROLOL SUCCINATE XR 25 MG TAB PO SCH (09:07)
[2017-10-30] MEDS: FLECAINIDE ACETATE 100 MG TAB PO SCH ×2 (09:07→20:47)
[2017-10-30] MEDS: ROSUVASTATIN CALCIUM 10 MG TAB PO SCH (09:07)
[2017-10-30] MEDS: FUROSEMIDE 20 MG TAB PO SCH ×2 (09:09→19:10)
[2017-10-30] MEDS: ESCITALOPRAM OXALATE 10 MG TAB PO SCH (09:09)
[2017-10-30] MEDS: DOCUSATE SODIUM 100 MG CAP PO PRN ×2 (09:09→20:48)
[2017-10-30] MEDS: PANTOPRAZOLE SODIUM 40 MG TAB PO SCH ×2 (09:15→19:10)
[2017-10-30] MEDS: TIOTROPIUM INHALER 18 MCG/DOSE 5 DOSE/MDI IH SCH (09:24)
[2017-10-30] MEDS: FLUTICASONE/SALMETER 500/50MCG DISKUS IH SCH ×2 (09:24→20:50)
[2017-10-30] MEDS: BENZONATATE 100 MG CAP PO PRN ×2 (13:45→20:50)
--- NOTE | 2017-10-30 14:40 | HOSPPROG ---
Hospitalist Progress Note Assessment/Plan: 67-year-old female presents emergency room with complaints of shortness of breath. 1st encounter, chart reviewed. Reviewed recent hospitalization in July. # community-acquired pneumonia Continue on Levaquin treatment Patient appears to be improving Chest x-ray shows bilateral pneumonia, personally reviewed # Streptococcus bacteremia Continue Levaquin Await final culture result Repeat blood cultures Likely secondary to the patient's pneumonia # acute hypoxemic respiratory failure In the setting of pneumonia Continue supportive therapy steroids given once DuoNebs # human metapneumovirus Continue precautions # cough Add Tessalon Perles # history of arterial embolus Continue Pradaxa # atrial fibrillation Rate controlled # disposition Patient requires further care in the hospital setting Repeat blood cultures Monitor acute infectious process Subjective: Still not feeling well. Complains of significant coughing. Objective: Vital Signs Temp Pulse Resp BP Pulse Ox 36.8 C 83 22 H 135/75 H 95 10/30/17 12:27 10/30/17 12:27 10/30/17 12:27 10/30/17 12:27 10/30/17 12:27 Laboratory Results 10/30/17 05:20 10/30/17 05:20 10/29/17 10/30/17 10/31/17 05:59 05:59 05:59 Intake Total 300 Balance 300 PT 21.3 SEC (12.0-15.0) H 10/29/17 12:32 INR 1.84 (0.83-1.16) H 10/29/17 12:32 - Physical Exam Constitutional: not in pain, chronically ill appearing, unkempt Eyes: PERRL, anicteric sclera, EOMI Ears, Nose, Mouth, Throat: moist mucous membranes, hearing normal, ears appear normal Cardiovascular: No JVD, No tachycardia, No edema Respiratory: no respiratory distress, reduced air movement, rhonchi Gastrointestinal: normoactive bowel sounds, No tenderness, No ascites Skin: warm, normal color, No mottled Musculoskeletal: normal joint ROM, no joint effusions, generalized weakness Neurologic: AAOx3 Psychiatric: interacting appropriately, not anxious, not encephalopathic, thought process linear ICD10 Worksheet Patient Problems: Problems Problem Status Onset Pneumonia Acute Chronic obstructive pulmonary disease with acute exacerbation Acute Hypoxemia Acute
[2017-10-30] MEDS: traMADol 50 MG TAB PO PRN ×2 (15:27→22:24)
[2017-10-31] MEDS: IPRATROPIUM/ALBUTEROL 3 ML DEYVIAL IH SCH ×4 (05:44→21:38)
[2017-10-31] MEDS: traMADol 50 MG TAB PO PRN ×3 (08:11→23:07)
[2017-10-31] MEDS: BENZONATATE 100 MG CAP PO PRN ×2 (08:11→20:12)
[2017-10-31] MEDS: OXYBUTYNIN CHLORIDE 5 MG TAB PO SCH ×3 (08:11→20:12)
[2017-10-31] MEDS: FUROSEMIDE 20 MG TAB PO SCH ×2 (08:11→17:09)
[2017-10-31] MEDS: PANTOPRAZOLE SODIUM 40 MG TAB PO SCH ×2 (08:11→17:09)
[2017-10-31] MEDS: FLECAINIDE ACETATE 100 MG TAB PO SCH ×2 (08:12→20:11)
[2017-10-31] MEDS: DABIGATRAN ETEXILATE MESYL 150 MG CAP PO SCH ×2 (08:12→20:12)
[2017-10-31] MEDS: ROSUVASTATIN CALCIUM 10 MG TAB PO SCH (08:13)
[2017-10-31] MEDS: CHOLECALCIFEROL VIT D3 1,000 UNITS TAB PO SCH (08:13)
[2017-10-31] MEDS: METOPROLOL SUCCINATE XR 25 MG TAB PO SCH (08:13)
[2017-10-31] MEDS: DOCUSATE SODIUM 100 MG CAP PO PRN (08:27)
[2017-10-31] MEDS: DILTIAZEM CD 120 MG CAP PO SCH (08:28)
[2017-10-31] MEDS: TIOTROPIUM INHALER 18 MCG/DOSE 5 DOSE/MDI IH SCH (09:35)
[2017-10-31] MEDS: FLUTICASONE/SALMETER 500/50MCG DISKUS IH SCH ×2 (09:35→20:13)
[2017-10-31] MEDS ORDERED: LACTULOSE 20 GM/30 ML UDCUP PO PRN (10:48)
[2017-10-31] MEDS ORDERED: BISACODYL 10 MG SUPP PR PRN (10:48)
--- NOTE | 2017-10-31 11:23 | ASMTCMCOM ---
CM Note CM Note Notes: Spoke w/RN, anticipate pt will dc home independent when medically stable. CM available for any changes. DC Plan: Independent Date Signed: 10/31/2017 11:23 AM Electronically Signed By:Shayy Arndt RN
[2017-10-31] MEDS: ESCITALOPRAM OXALATE 10 MG TAB PO SCH (12:04)
--- NOTE | 2017-10-31 12:42 | HOSPPROG ---
Hospitalist Progress Note Assessment/Plan: 67-year-old female presents emergency room with complaints of shortness of breath. # community-acquired pneumonia Continue on Levaquin treatment Patient appears to be improving Chest x-ray shows bilateral pneumonia # Streptococcus bacteremia unclear if contaminate Continue Levaquin Await final culture result Repeat blood cultures Likely secondary to the patient's pneumonia if not contaminate # acute hypoxemic respiratory failure In the setting of pneumonia Continue supportive therapy steroids given once, pt not wanting to take them but might help, offer again DuoNebs # human metapneumovirus Continue precautions # cough Tessalon Perles # history of arterial embolus Continue Pradaxa # atrial fibrillation Rate controlled # disposition Patient requires further care in the hospital setting Repeat blood cultures Monitor acute infectious process Subjective: Up in the chair. Feels tired and weak. Got some sleep last night. Objective: Vital Signs Temp Pulse Resp BP Pulse Ox 36.8 C 81 24 H 131/74 H 91 L 10/31/17 11:15 10/31/17 11:15 10/31/17 11:15 10/31/17 11:15 10/31/17 11:15 Laboratory Results 10/30/17 05:20 10/30/17 05:20 10/30/17 10/31/17 11/01/17 05:59 05:59 05:59 Intake Total 300 1280 Balance 300 1280 PT 21.3 SEC (12.0-15.0) H 10/29/17 12:32 INR 1.84 (0.83-1.16) H 10/29/17 12:32 - Physical Exam Constitutional: no apparent distress, appears nourished, not in pain Eyes: PERRL, anicteric sclera, EOMI Ears, Nose, Mouth, Throat: moist mucous membranes, hearing normal, ears appear normal Cardiovascular: No JVD, No tachycardia, No edema Respiratory: clear to auscultation, expiratory wheeze, rhonchi Gastrointestinal: normoactive bowel sounds, No tenderness, No ascites Skin: warm, normal color, No mottled Musculoskeletal: normal joint ROM, no joint effusions, generalized weakness Neurologic: AAOx3 Psychiatric: interacting appropriately, not anxious, not encephalopathic, thought process linear ICD10 Worksheet Patient Problems: Problems Problem Status Onset Pneumonia Acute Chronic obstructive pulmonary disease with acute exacerbation Acute Hypoxemia Acute
[2017-10-31] MEDS: POLYETHYLENE GLYCOL 3350 17 GM PKT PO PRN (13:34)
[2017-10-31] MEDS: SENNOSIDES/DOCUSATE SODIUM TAB PO SCH (20:12)
[2017-11-01] MEDS: IPRATROPIUM/ALBUTEROL 3 ML DEYVIAL IH SCH ×4 (05:30→22:04)
--- NOTE | 2017-11-01 08:41 | HOSPPROG ---
Hospitalist Progress Note Assessment/Plan: 67-year-old female presents emergency room with complaints of shortness of breath. She was seen by her primary care provider and diagnosed with pneumonia and treat with azithromycin. She continued to feel poorly. Today is my 1st encounter with the patient. Chart reviewed. # community-acquired pneumonia Continue on Levaquin treatment Chest x-ray shows bilateral pneumonia # Streptococcus bacteremia unclear if contaminate Continue Levaquin Await final culture result Repeat blood cultures Likely secondary to the patient's pneumonia if not contaminate # acute hypoxemic respiratory failure In the setting of pneumonia Continue supportive therapy steroids given but she doesn't want them DuoNebs # human metapneumovirus Continue precautions # cough Tessalon Perles # history of arterial embolus Continue Pradaxa # atrial fibrillation Rate controlled # disposition pending, she is having frequent coughing bouts and is exhausted Subjective: Darlin said she is feeling poorly, tired and run down. Objective: Vital Signs Temp Pulse Resp BP Pulse Ox 36.5 C 71 16 110/65 93 11/01/17 06:43 11/01/17 06:43 11/01/17 06:43 11/01/17 06:43 11/01/17 06:43 Laboratory Results 10/30/17 05:20 10/30/17 05:20 10/31/17 11/01/17 11/02/17 05:59 05:59 05:59 Intake Total 1280 1050 Balance 1280 1050 PT 21.3 SEC (12.0-15.0) H 10/29/17 12:32 INR 1.84 (0.83-1.16) H 10/29/17 12:32 - Physical Exam Constitutional: no apparent distress Eyes: PERRL Ears, Nose, Mouth, Throat: hearing normal Cardiovascular: regular rate and rhythym Respiratory: no respiratory distress, reduced air movement, rhonchi Skin: warm, normal color Musculoskeletal: full muscle strength Neurologic: AAOx3 Psychiatric: interacting appropriately ICD10 Worksheet Patient Problems: Problems Problem Status Onset Pneumonia Acute Chronic obstructive pulmonary disease with acute exacerbation Acute Hypoxemia Acute
[2017-11-01] MEDS: DABIGATRAN ETEXILATE MESYL 150 MG CAP PO SCH ×2 (08:42→21:03)
[2017-11-01] MEDS: CHOLECALCIFEROL VIT D3 1,000 UNITS TAB PO SCH (08:42)
[2017-11-01] MEDS: FLECAINIDE ACETATE 100 MG TAB PO SCH ×2 (08:43→21:03)
[2017-11-01] MEDS: SENNOSIDES/DOCUSATE SODIUM TAB PO SCH ×2 (08:44→21:05)
[2017-11-01] MEDS: METOPROLOL SUCCINATE XR 25 MG TAB PO SCH ×3 (08:45→22:57)
[2017-11-01] MEDS: PANTOPRAZOLE SODIUM 40 MG TAB PO SCH ×2 (08:45→17:51)
[2017-11-01] MEDS: ROSUVASTATIN CALCIUM 10 MG TAB PO SCH (08:45)
[2017-11-01] MEDS: DILTIAZEM CD 120 MG CAP PO SCH (08:45)
[2017-11-01] MEDS: FUROSEMIDE 20 MG TAB PO SCH ×2 (08:45→17:51)
[2017-11-01] MEDS: POLYETHYLENE GLYCOL 3350 17 GM PKT PO PRN (09:52)
[2017-11-01] MEDS: traMADol 50 MG TAB PO PRN ×4 (09:54→19:02)
[2017-11-01] MEDS: TIOTROPIUM INHALER 18 MCG/DOSE 5 DOSE/MDI IH SCH (10:21)
[2017-11-01] MEDS: FLUTICASONE/SALMETER 500/50MCG DISKUS IH SCH ×2 (10:22→22:07)
[2017-11-01] MEDS: ESCITALOPRAM OXALATE 10 MG TAB PO SCH (12:31)
[2017-11-01] MEDS: OXYBUTYNIN CHLORIDE 5 MG TAB PO SCH ×2 (13:09→21:04)
[2017-11-01] MEDS: MAGNESIUM HYDROXIDE 30 ML UDCUP PO PRN (19:04)
[2017-11-01] MEDS: ACETAMINOPHEN 325 MG TAB PO PRN (22:52)
[2017-11-02] MEDS: IPRATROPIUM/ALBUTEROL 3 ML DEYVIAL IH SCH ×4 (08:28→20:52)
[2017-11-02] MEDS: TIOTROPIUM INHALER 18 MCG/DOSE 5 DOSE/MDI IH SCH (09:32)
[2017-11-02] MEDS: FLUTICASONE/SALMETER 500/50MCG DISKUS IH SCH ×2 (09:33→20:55)
[2017-11-02] MEDS: DABIGATRAN ETEXILATE MESYL 150 MG CAP PO SCH ×2 (10:19→22:17)
[2017-11-02] MEDS: FUROSEMIDE 20 MG TAB PO SCH ×2 (10:20→17:04)
[2017-11-02] MEDS: OXYBUTYNIN CHLORIDE 5 MG TAB PO SCH ×2 (10:21→22:25)
[2017-11-02] MEDS: ROSUVASTATIN CALCIUM 10 MG TAB PO SCH (10:21)
[2017-11-02] MEDS: METOPROLOL SUCCINATE XR 25 MG TAB PO SCH ×2 (10:22→22:18)
[2017-11-02] MEDS: DILTIAZEM CD 120 MG CAP PO SCH (10:23)
[2017-11-02] MEDS: CHOLECALCIFEROL VIT D3 1,000 UNITS TAB PO SCH (10:23)
[2017-11-02] MEDS: SENNOSIDES/DOCUSATE SODIUM TAB PO SCH ×2 (10:27→22:25)
[2017-11-02] MEDS: ACETAMINOPHEN 325 MG TAB PO PRN ×2 (10:28→22:32)
[2017-11-02] MEDS: PANTOPRAZOLE SODIUM 40 MG TAB PO SCH ×2 (10:28→17:04)
[2017-11-02] MEDS: ESCITALOPRAM OXALATE 10 MG TAB PO SCH (10:29)
--- NOTE | 2017-11-02 14:24 | ASMTCMCOM ---
CM Note CM Note Notes: Spoke w/RN, pt will dc in a few days. She will dc home independent when medically stable. CM available for any changes. DC Plan: Independent Date Signed: 11/02/2017 02:23 PM Electronically Signed By:Shayy Arndt RN
--- NOTE | 2017-11-02 15:01 | HOSPPROG ---
Hospitalist Progress Note Assessment/Plan: 67-year-old female presents emergency room with complaints of shortness of breath. She was seen by her primary care provider and diagnosed with pneumonia and treat with azithromycin. She continued to feel poorly. # community-acquired pneumonia Continue on Levaquin treatment Chest x-ray shows bilateral pneumonia # Streptococcus bacteremia unclear if contaminate Continue Levaquin Await final culture result Repeat blood cultures show no growth Likely secondary to the patient's pneumonia if not contaminate # acute hypoxemic respiratory failure In the setting of pneumonia Continue supportive therapy steroids given but she doesn't want them DuoNebs #copd exacerbation -is O2 dependent at night and prn at baseline -very slow improvement, have added steroids to start tomorrow # human metapneumovirus Continue precautions # cough Tessalon Perles # history of arterial embolus Continue Pradaxa # atrial fibrillation Rate controlled # disposition pending, add steroids, mucinex Subjective: Darlin said she is still feeling weak, her lungs feel very tight. Objective: Vital Signs Temp Pulse Resp BP Pulse Ox 36.6 C 80 16 110/74 95 11/02/17 12:00 11/02/17 12:00 11/02/17 12:00 11/02/17 12:00 11/02/17 12:00 Laboratory Results 10/30/17 05:20 10/30/17 05:20 11/01/17 11/02/17 11/03/17 05:59 05:59 05:59 Intake Total 1050 600 Balance 1050 600 PT 21.3 SEC (12.0-15.0) H 10/29/17 12:32 INR 1.84 (0.83-1.16) H 10/29/17 12:32 - Physical Exam Constitutional: no apparent distress, appears nourished Eyes: PERRL Ears, Nose, Mouth, Throat: hearing normal Cardiovascular: regular rate and rhythym Respiratory: no respiratory distress, reduced air movement (bibasilar), expiratory wheeze Skin: warm, normal color Musculoskeletal: full muscle strength Neurologic: AAOx3 Psychiatric: interacting appropriately, not anxious ICD10 Worksheet Patient Problems: Problems Problem Status Onset Pneumonia Acute Chronic obstructive pulmonary disease with acute exacerbation Acute Hypoxemia Acute
[2017-11-02] MEDS: guaiFENesin 600 MG TAB.ER PO SCH ×2 (16:16→22:18)
[2017-11-02] MEDS: MAGNESIUM HYDROXIDE 30 ML UDCUP PO PRN (17:04)
[2017-11-02] MEDS: POLYETHYLENE GLYCOL 3350 17 GM PKT PO PRN (17:04)
[2017-11-02] MEDS: FLECAINIDE ACETATE 100 MG TAB PO SCH (22:18)
[2017-11-03] MEDS: traMADol 50 MG TAB PO PRN ×2 (04:26→22:36)
[2017-11-03] MEDS: IPRATROPIUM/ALBUTEROL 3 ML DEYVIAL IH SCH ×4 (05:56→20:50)
[2017-11-03] MEDS: guaiFENesin 600 MG TAB.ER PO SCH ×2 (09:03→21:02)
[2017-11-03] MEDS: DABIGATRAN ETEXILATE MESYL 150 MG CAP PO SCH ×2 (09:04→21:03)
[2017-11-03] MEDS: ROSUVASTATIN CALCIUM 10 MG TAB PO SCH (09:04)
[2017-11-03] MEDS: FLECAINIDE ACETATE 100 MG TAB PO SCH ×2 (09:05→21:02)
[2017-11-03] MEDS: CHOLECALCIFEROL VIT D3 1,000 UNITS TAB PO SCH (09:06)
[2017-11-03] MEDS: predniSONE 20 MG TAB PO SCH (09:06)
[2017-11-03] MEDS: FUROSEMIDE 20 MG TAB PO SCH ×2 (09:06→17:06)
[2017-11-03] MEDS: DILTIAZEM CD 120 MG CAP PO SCH (09:06)
[2017-11-03] MEDS: METOPROLOL SUCCINATE XR 25 MG TAB PO SCH ×2 (09:07→21:02)
[2017-11-03] MEDS: PANTOPRAZOLE SODIUM 40 MG TAB PO SCH ×2 (09:07→17:06)
[2017-11-03] MEDS: OXYBUTYNIN CHLORIDE 5 MG TAB PO SCH ×2 (09:07→21:07)
[2017-11-03] MEDS: SENNOSIDES/DOCUSATE SODIUM TAB PO SCH ×2 (09:12→21:07)
--- NOTE | 2017-11-03 09:13 | HOSPPROG ---
Hospitalist Progress Note Assessment/Plan: 67-year-old female presents emergency room with complaints of shortness of breath. She was seen by her primary care provider and diagnosed with pneumonia and treat with azithromycin. She continued to feel poorly. # community-acquired pneumonia Continue on Levaquin treatment Chest x-ray shows bilateral pneumonia # Streptococcus bacteremia unclear if contaminate Continue Levaquin Repeat blood cultures show no growth Likely secondary to the patient's pneumonia if not contaminate # acute hypoxemic respiratory failure In the setting of pneumonia Continue supportive therapy added prednisone DuoNebs #copd exacerbation -is O2 dependent at night and prn at baseline -very slow improvement, have added steroids today # human metapneumovirus Continue precautions # cough Tessalon Perles # history of arterial embolus Continue Pradaxa # atrial fibrillation Rate controlled # disposition:pending, added acapella valve, she is starting to feel better, Will get a chest xray to further evaluate. With her underlying lung disease and now a virus, she has been slow to improve. Subjective: Darlin is tired, slept poorly and still having frequent bouts of coughing. Objective: Vital Signs Temp Pulse Resp BP Pulse Ox 36.6 C 70 14 108/68 90 L 11/03/17 08:00 11/03/17 09:07 11/03/17 08:00 11/03/17 09:07 11/03/17 08:00 Laboratory Results 10/30/17 05:20 10/30/17 05:20 11/02/17 11/03/17 11/04/17 05:59 05:59 05:59 Intake Total 600 1620 Balance 600 1620 PT 21.3 SEC (12.0-15.0) H 10/29/17 12:32 INR 1.84 (0.83-1.16) H 10/29/17 12:32 - Physical Exam Constitutional: appears nourished, not in pain Eyes: PERRL Ears, Nose, Mouth, Throat: hearing normal Cardiovascular: regular rate and rhythym Respiratory: no respiratory distress, reduced air movement, rhonchi Skin: warm Musculoskeletal: full muscle strength Neurologic: AAOx3 Psychiatric: interacting appropriately ICD10 Worksheet Patient Problems: Problems Problem Status Onset Pneumonia Acute Chronic obstructive pulmonary disease with acute exacerbation Acute Hypoxemia Acute
[2017-11-03] MEDS: TIOTROPIUM INHALER 18 MCG/DOSE 5 DOSE/MDI IH SCH (11:11)
[2017-11-03] MEDS: FLUTICASONE/SALMETER 500/50MCG DISKUS IH SCH ×2 (11:11→20:53)
[2017-11-03] MEDS: ESCITALOPRAM OXALATE 10 MG TAB PO SCH (11:44)
[2017-11-03] MEDS: ACETAMINOPHEN 325 MG TAB PO PRN (11:48)
[2017-11-04] MEDS: ACETAMINOPHEN 325 MG TAB PO PRN (02:37)
[2017-11-04] MEDS: IPRATROPIUM/ALBUTEROL 3 ML DEYVIAL IH SCH ×3 (06:44→15:38)
[2017-11-04] MEDS: CHOLECALCIFEROL VIT D3 1,000 UNITS TAB PO SCH (09:38)
[2017-11-04] MEDS: PANTOPRAZOLE SODIUM 40 MG TAB PO SCH (09:38)
[2017-11-04] MEDS: ROSUVASTATIN CALCIUM 10 MG TAB PO SCH (09:38)
[2017-11-04] MEDS: predniSONE 20 MG TAB PO SCH (09:38)
[2017-11-04] MEDS: OXYBUTYNIN CHLORIDE 5 MG TAB PO SCH (09:38)
[2017-11-04] MEDS: DABIGATRAN ETEXILATE MESYL 150 MG CAP PO SCH (09:39)
[2017-11-04] MEDS: METOPROLOL SUCCINATE XR 25 MG TAB PO SCH (09:39)
[2017-11-04] MEDS: FLECAINIDE ACETATE 100 MG TAB PO SCH (09:39)
[2017-11-04] MEDS: DILTIAZEM CD 120 MG CAP PO SCH (09:40)
[2017-11-04] MEDS: guaiFENesin 600 MG TAB.ER PO SCH (09:40)
[2017-11-04] MEDS: FUROSEMIDE 20 MG TAB PO SCH (09:40)
[2017-11-04] MEDS: FLUTICASONE/SALMETER 500/50MCG DISKUS IH SCH (09:42)
[2017-11-04] MEDS: TIOTROPIUM INHALER 18 MCG/DOSE 5 DOSE/MDI IH SCH (09:43)
[2017-11-04] MEDS: SENNOSIDES/DOCUSATE SODIUM TAB PO SCH (11:08)
[2017-11-04] MEDS: ESCITALOPRAM OXALATE 10 MG TAB PO SCH (11:08)
--- NOTE | 2017-11-04 11:44 | HOSPPROG ---
Hospitalist Progress Note Assessment/Plan: 67-year-old female presents emergency room with complaints of shortness of breath. She was seen by her primary care provider and diagnosed with pneumonia and treat with azithromycin. She continued to feel poorly. # community-acquired pneumonia Continue on Levaquin treatment recent Chest x-ray shows improvement # Streptococcus bacteremia, most likely a contaminant Repeat blood cultures show no growth # acute hypoxemic respiratory failure In the setting of pneumonia Continue supportive therapy added prednisone DuoNebs #copd exacerbation -is O2 dependent at night and prn at baseline -very slow improvement, have added steroids today # human metapneumovirus Continue precautions # cough Tessalon Perles # history of arterial embolus Continue Pradaxa # atrial fibrillation Rate controlled # disposition:home with home care, cont short treatment of prednisone Subjective: Darlin is feeling better, ready to go home Objective: Vital Signs Temp Pulse Resp BP Pulse Ox 36.6 C 70 16 140/86 H 84 L 11/04/17 08:00 11/04/17 08:00 11/04/17 08:00 11/04/17 08:00 11/04/17 09:48 Laboratory Results 10/30/17 05:20 10/30/17 05:20 11/03/17 11/04/17 11/05/17 05:59 05:59 05:59 Intake Total 1620 1400 Balance 1620 1400 PT 21.3 SEC (12.0-15.0) H 10/29/17 12:32 INR 1.84 (0.83-1.16) H 10/29/17 12:32 - Physical Exam Constitutional: appears nourished, not in pain Eyes: PERRL Ears, Nose, Mouth, Throat: hearing normal Cardiovascular: regular rate and rhythym, no murmur, rub, or gallop Respiratory: no respiratory distress, reduced air movement (biasilar) Skin: warm Musculoskeletal: full muscle strength Neurologic: AAOx3 Psychiatric: interacting appropriately ICD10 Worksheet Patient Problems: Problems Problem Status Onset Pneumonia Acute Chronic obstructive pulmonary disease with acute exacerbation Acute Hypoxemia Acute
[2017-11-04 15:45] VITALS: BP 105/79
--- NOTE | 2017-11-04 16:01 | PDIAF ---
- Diagnosis Diagnosis: community acquired pna Code Status: Full Code - Medication Management Discharge Medications: Medications to Continue on Transfer Alendronate Sodium [Fosamax 70 MG (*)] 70 mg PO TH@0700 11/23/14 [Last Taken Unknown] Cholecalciferol Vit D3 [Vitamin D3 (*)] 1,000 units PO DAILY 11/23/14 [Last Taken 02/03/17] Dabigatran Etexilate Mesyl [Pradaxa 150 MG (*)] 150 mg PO BID 11/23/14 [Last Taken 10/29/17 08:00] Escitalopram Oxalate [Lexapro 10 MG] 10 mg PO DAILY@11 11/23/14 [Last Taken ] Furosemide [Lasix 20 MG (*)] 20 mg PO BIDDIUR 11/23/14 [Last Taken 10/29/17 08: 00] Pantoprazole Sodium [Protonix 40mg (*)] 40 mg PO DAILY 11/23/14 [Last Taken ] Potassium Cl [Klor-Con 10 meq (RX)] 10 meq PO BIDAC 11/23/14 [Last Taken ] Tiotropium Inhaler [Spiriva Inhaler (RX)] 1 inh IH DAILY 11/23/14 [Last Taken ] Fluticasone/Salmeter 500/50Mcg [Advair 500/50 (*)] 1 puffs IH BID 02/03/17 [ Last Taken 10/29/17] Acetaminophen [Tylenol 325mg (*)] 650 mg PO Q4HRS PRN #0 tab 02/10/17 [Last Taken Unknown] traMADol [Ultram 50 mg (*)] 100 mg PO Q6 PRN 10/29/17 [Last Taken Unknown] Albuterol [Proventil Inhaler HFA (*)] 2 puffs IH Q4 PRN 11/02/17 [Last Taken Unknown] Diltiazem HCl [Cardizem Cd] 120 mg PO DAILY 11/02/17 [Last Taken Unknown] Flecainide Acetate 50 mg PO BID 11/02/17 [Last Taken Unknown] Metoprolol Succinate Xr [Toprol Xl 25 mg (*)] 25 mg PO BID 11/02/17 [Last Taken Unknown] Polyethylene Glycol 3350 [Miralax 17 gm (*)] 17 gm PO DAILY 11/02/17 [Last Taken Unknown] Rosuvastatin Calcium 20 mg PO DAILY 11/02/17 [Last Taken Unknown] Triamcinolone 0.1% [Triamcinolone 0.1% Cream] 1 susan TP BID 11/02/17 [Last Taken Unknown] Benzonatate [Tessalon Pearles] 100 mg PO TID PRN #30 cap 11/04/17 [Last Taken Unknown] guaiFENesin [Mucinex 600 MG (*)] 1,200 mg PO BID tab.er 11/04/17 [Last Taken Unknown] guaiFENesin/DEXTROMETHORPHAN [Robitussin Dm Oral Liquid (*)] 10 ml PO Q4HRS PRN ml 11/04/17 [Last Taken Unknown] predniSONE 40 mg PO DAILY #7 tablet 11/04/17 [Last Taken Unknown] Discharge Medications: Refer to the Discharge Home Medication list for PRN reason. PICC Care - Routine: N/A - Orders Services needed: Home Care, Registered Nurse Home Care Face to Face: I certify that this patient was under my care and that I had the required [id number] encounter meeting the encounter requirements on the discharge day. My findings support the fact that the patient is homebound as defined in Home Care Face to Face Continued: CMS Chapter 7 Medicare Benefits Manual 30.1.1 , The condition of the patient is such that there exists a normal inability to leave home and consequently, leaving home would require a considerable and taxing effort. Isolation Type: Contact Isolation, Droplet Isolation Diet Recommendation: no restrictions on diet Diet Texture: Regular Texture Diet Additional Instructions: take it easy for next week take prednisone as instructed, if you start to feel worse, talk with your doctor ; may need this longer you are a delight to know! - Follow Up Care Current Providers and Referrals: NONE *PRIMARY CARE P,. [Primary Care Provider] - As per Instructions
--- NOTE | 2017-11-04 19:33 | GDS ---
[f rep st] DISCHARGE SUMMARY DISCHARGE DIAGNOSES: 1. Community acquired pneumonia. 2. Streptococcus in one blood culture, most likely a contaminant. 3. Acute hypoxemic respiratory failure. 4. Chronic obstructive pulmonary disease exacerbation. 5. Human metapneumovirus. 6. Cough. 7. History of arterial embolus. 8. Atrial fibrillation. HISTORY OF PRESENT ILLNESS: Briefly, the patient is a 67-year-old female who presented to the emergency room with complaints of shortness of breath. She was seen by her primary care provider and diagnosed with pneumonia, treated with azithromycin. She continued to feel poorly. She was admitted and treated with Levaquin. Her chest x-ray showed a bilateral pneumonia. She improved through her stay. Of concern, she had 1 blood culture that showed Streptococcus bacteria. It was most likely a contaminant. Second set of blood cultures showed no growth. She improved with treatment of Levaquin. She will be discharged home and follow up with her primary care provider. HOSPITAL COURSE, PER PROBLEM LIST: 1. Community-acquired pneumonia, much improved. 2. Possible contaminant of Streptococcus. Repeat blood culture showed no growth. She is much improved. 3. Acute hypoxemic respiratory failure, improved with adding prednisone. 4. COPD exacerbation. She is dependent on oxygen at night. 5. Human metapneumovirus complicating her pneumonia as well as her COPD. 6. Cough. Tessalon Perles have helped. 7. History of arterial embolus. Continue her anticoagulation. 8. Atrial fibrillation, rate controlled with her flecainide and metoprolol. DISCHARGE CONDITION: Stable. Blood pressure is 105/79, heart rate is 77, respiratory rate is 16, O2 sats on 3 L are 93%, temperature is 36.4 Celsius. MEDICATIONS AT DISCHARGE: Please see the EMR. DISCHARGE INSTRUCTIONS: 1. To follow up with her primary care provider and get a repeat chest x-ray in 6 weeks. 2. If her symptoms start to get worse, talk to doctor about increasing her prednisone. 3. To take it easy for the next week. 4. If she develops fever, chills, chest pain, or shortness of breath, return to the ER. Greater than 30 minutes, discharging and coordinating patient's care. /[id number]/MODL MTDD
--- NOTE | 2017-11-05 09:00 | ASDISCHSUM ---
Discharge Information Plan Status:Home with Home Health Medically Cleared to Leave:11/04/2017 Discharge Date:11/04/2017 05:55 PM CM D/C Disposition: ADT D/C Disposition:Home, Routine, Self-Care Projected Discharge Date:11/04/2017 11:00 AM Transportation at D/C: Discharge Delay Reason: Follow-Up Date:11/04/2017 11:00 AM Discharge Slot: Final Diagnosis: Placement Information Referral Type:*Home Health Care Services Referral ID:[id number] Provider Name:[facility] Address 1:[address] [place] [address] Address 2: City:[place] Selection Factors: State:[place] Patient Contact Information Contact Name:ELIEZER Relationship:Daughter Address: Work Phone: City:[place] Alternate Phone: State/Zip Code:[place] [address] Email: Financial Information Financial Class:Medicare Advantage Plans Primary Plan Desc:[facility] [employer] [facility] Primary Plan Number:[id number] Secondary Plan Desc:[facility] Secondary Plan Number:[id number] Assessment Information [facility] CM Progress Note CM Note CM Note Notes: Taylor moody/DOLLY, anticipate pt will dc home independent when medically stable. CM available for any changes. DC Plan: Independent Date Signed: 10/31/2017 11:23 AM Electronically Signed By:Shayy Arndt RN [facility] CM Progress Note CM Note CM Note Notes: Taylor moody/DOLLY, pt will dc in a few days. She will dc home independent when medically stable. CM available for any changes. DC Plan: Independent Date Signed: 11/02/2017 02:23 PM Electronically Signed By:Shayy Arndt RN Case Management Discharge Plan Note Case Management Discharge Discharge Order Complete? Answers: No Patient to Obtain Answers: via Family Medications Transportation Arranged Answers: Family/Friends EMTALA Complete Answers: No Case Management Transport Answers: No Form Complete Faxed Final Orders Answers: Yes Agency/Facility Transfer Answers: Yes Report Printed & Faxed to Receiving Agency Family Notified Answers: No Discharge Comments Notes: CM spoke w/ ALCON Nash and DOLLY Artis regarding d/c POC. Pt is being discharged today. CM met w/ pt for dispo planning. Pt is requesting to have an RN check in with her. Pt reports that she had BC in the past and found it to be helpful. Referral made to [facility]. [facility] is able to accept. provided DOLLY Artis w/ phone number to give report. CM available for changes. Plan: DOLLY DONIS Date Signed: 11/04/2017 04:02 PM Electronically Signed By:DARWIN Crenshaw Intervention Information Intervention Type:*IM-Signed Date of Service:11/04/2017 04:02 PM Patient Type:Inpatient Staff Member:Alysa Almeida Hours: Discipline: Severity: Comment:
== END 2017-11-04 17:55 | disposition home health service (06) | DRG 193 ==
LOC: OBSVTOIN 14:29 → FOB 16:30 → F3E 10-30 12:16
PROVIDERS: ADMIT Internal Medicine; ATTEND Internal Medicine
DX: J12.3 Human metapneumovirus pneumonia (principal); J96.01 Acute respiratory failure with hypoxia; J44.1 Chronic obstructive pulmonary disease with (acute) exacerbation; J44.0 Chronic obstructive pulmonary disease with (acute) lower respiratory infection; Z99.81 Dependence on supplemental oxygen; Z87.891 Personal history of nicotine dependence; I48.91 Unspecified atrial fibrillation; Z79.01 Long term (current) use of anticoagulants; I10 Essential (primary) hypertension; I73.00 Raynaud's syndrome without gangrene; Z89.022 Acquired absence of left finger(s)
CPT/HCPCS: 96365; J1956; J2930; J7512

== ENCOUNTER → 2017-11-29 | Outpatient (CLI) | payer OTHER | LOC: FIMAGING 11:49 | PROVIDERS: ATTEND Family Medicine | DX: J98.4 Other disorders of lung (principal) ==

== ENCOUNTER → 2018-04-04 | Outpatient (CLI) | payer OTHER | LOC: FIMAGING 14:06 | PROVIDERS: ATTEND Family Medicine | DX: M43.17 Spondylolisthesis, lumbosacral region (principal); M48.56XA Collapsed vertebra, not elsewhere classified, lumbar region, initial encounter for fracture; M51.36 Other intervertebral disc degeneration, lumbar region; M53.3 Sacrococcygeal disorders, not elsewhere classified; I70.0 Atherosclerosis of aorta ==

== ENCOUNTER → 2018-11-24 | Outpatient (CLI) | payer OTHER | LOC: FIMAGING 18:39 | PROVIDERS: ATTEND Family Medicine | DX: J44.9 Chronic obstructive pulmonary disease, unspecified (principal) ==

== ENCOUNTER → 2018-12-03 | Outpatient (CLI) | payer OTHER | LOC: FIMAGING 14:05 ==